=== PATIENT | female | born 1995 | race African-American/Black ===

== ENCOUNTER 2023-01-02 09:45 | Outpatient (REF) | payer OTHER, SELFPAY ==
[2023-01-02 10:01] LABS: MANUAL DIFF FLAG NO
[2023-01-02 10:51] LABS: Appearance Urine Clear; Color Urine Yellow; Glucose Urine UA Negative (Negative); Leukocyte Esterase Urine Moderate (2+) (Negative); Nitrite Urine Negative (Negative); Specific Gravity - Urine 1.015 (1.005-1.025); UMIC TRIGGER UA YES; Urine Blood Negative (Negative); Urine Ketones Negative (Negative); Urine Protein Negative (Neg-Trace)
[2023-01-02 10:54] LABS: Bacteria Urine 2+ (None Seen); Hyaline Casts Urine 0-2 /LPF (0-2)
[2023-01-02 11:16] LABS: Basophils Absolute Auto 0.1 X10*3/uL (0.0-0.2); Basophils Percent Auto 0.7 % (0-2); Eosinophils Absolute Auto 0.1 X10*3/uL (0.0-0.4); Eosinophils Percent Auto 1.1 % (0-4); Hematocrit 41.3 % (37.0-47.0); Hemoglobin 13.5 g/dl (12.0-16.0); Imm Gran Abs Auto 0.03 X10*3/uL (0.00-0.03); Imm Gran Pct Auto 0.3 % (0.0-0.4); Lymphocytes Absolute Auto 3.2 X10*3/uL (1.2-4.9); Lymphocytes Percent Auto 33.1 % (20-40); Mean Corpuscular HGB Conc 32.7 g/dl (31.0-35.0); Mean Corpuscular Hemoglobin 29.1 pg (27.0-33.0); Mean Platelet Volume 12.2 fL (9.4-12.3); Monocytes Absolute Auto 0.5 X10*3/uL (0.1-1.2); Monocytes Percent Auto 5.4 % (2-11); Neutrophils Absolute Auto 5.7 x10*3/uL (2.0-8.3); Neutrophils Percent Auto 59.4 % (45-73); Platelet Count 256 X10*3/uL (160-400); Red Blood Count 4.64 X10*6/uL (4.20-5.50); Red Cell Distribution Width 12.5 % (11.0-16.0); White Blood Count 9.6 X10*3/uL (4.8-10.8)
[2023-01-02 11:53] LABS: Anion Gap 12 (12-20); Blood Urea Nitrogen 8 mg/dL (9-16); Calcium 9.5 mg/dL (8.4-10.2); Carbon Dioxide 26 mmol/L (22-29); Chloride 103 mmol/L (96-108); Estimated Glomerular Filt Rate > 60; Glucose Random 68 mg/dL (60-115); Iron 140 mcg/dL (30-160); Percent Iron Saturation 33 % (15-50); Potassium 4.4 mmol/L (3.3-5.1); Sodium 137 mmol/L (135-145); Total Iron Binding Capacity 428 mcg/dL (228-428); Unsaturated Iron Binding 288 ug/dL
== END 2023-01-02 09:46 | disposition home or self-care (01) ==
LOC: HO.LAB 09:45
PROVIDERS: Visit Provider Psychiatry & Neurology Neurology
DX: G44.209 Tension-type headache, unspecified, not intractable (principal)
CPT/HCPCS: 36415; 80048; 81001; 83540; 84443; 85025

== ENCOUNTER 2023-01-18 07:27 | Outpatient (REF) | payer OTHER, SELFPAY ==
--- NOTE | ~2023-01-18 | CT_ITS ---
EXAMINATION: CT HEAD WITHOUT CONTRAST CLINICAL INFORMATION: Tension headaches. COMPARISON: None. TECHNIQUE: Contiguous axial imaging was performed from the skull base to vertex without intravenous administration of contrast. Coronal and sagittal reformatted images are performed at the CT scanner. [This CT examination was performed using dose optimization techniques as appropriate, variously including the following: *Automated exposure control *Adjustment of mA and/or kV according to patient size (this includes techniques or standardized protocols for targeted exams where dose is matched to indication/reason for exam; i.e. extremities or head) *Use of iterative reconstruction technique] DLP: 622 mGy-cm. FINDINGS: There is no evidence of acute intracranial hemorrhage or territorial infarction. No abnormal mass-effect or midline shift is seen. Shepherd to white matter differentiation is well preserved. No extra-axial fluid collections are identified. The ventricles are normal in size. There is no abnormal attenuation within the brain parenchyma. There is no osseous abnormality. The mastoid air cells and visualized portions of the paranasal sinuses are well-aerated. CT/CT head/brain wo IV con IMPRESSION: No acute intracranial pathology.
== END 2023-01-18 07:28 | disposition home or self-care (01) ==
LOC: HO.CT 07:27
PROVIDERS: PCP Internal Medicine; Visit Provider Psychiatry & Neurology Neurology
DX: G44.209 Tension-type headache, unspecified, not intractable (principal)
CPT/HCPCS: 70450

== ENCOUNTER 2023-01-20 16:52 | Emergency (ER) | payer OTHER, SELFPAY ==
[2023-01-20 17:16] VITALS: BP 154/95; PULSE 100; RESP 18; TEMP 36.6; O2SAT 98; BMI 23.8
--- NOTE | 2023-01-20 17:18 | ED_ITS ---
HPI - Headache General Chief Complaint: Headache <MAYNOR Tinoco - Last Filed: 01/28/23 13:19> Stated Complaint: migraine <MAYNOR Tinoco Last Filed: 01/28/23 13:19> Time Seen by Provider: 01/20/23 18:01 <MAYNOR Tinoco Last Filed: 01/28/23 13:19> Source: patient and RN notes reviewed <MAYNOR Song Last Filed: 01/20/23 19:17> Mode of arrival: ambulatory <MAYNOR Song Last Filed: 01/20/23 19:17> Limitations: no limitations <MAYNOR Song Last Filed: 01/20/23 19:17> History of Present Illness HPI Narrative: This is a 27-year-old female, with a past medical history of anxiety, PTSD, depression, who presents to the emergency department today with ongoing atraumatic headache x 1 month. Patient reports that 1 month ago she developed a frontal headache that has not resolved. She reports that her headache worsens with light and sounds and at times feels dizzy. She followed up with her care physician who prescribed her sumatriptan. She states that this medication did not help. She tried dvbz-cdc-ladgcrt Tylenol, Motrin, and Excedrin migraine without any relief. She was then referred to a neurologist who saw her and prescribed her amitriptyline and Tylenol with codeine. She states that she was taking this but this has not provided her with any relief. She reports that this medication gave her some GI upset, and reports that she has had abdominal bloating, heartburn, nausea, and vomited 2 times 2 days ago. She states that her last dose of Tylenol with codeine was 4 days ago. She denies any fevers, chills, blurred vision, ear pain, sore throat, chest pain, shortness of breath, palpitations, abdominal pain, diarrhea, constipation, dysuria, urinary frequency, urinary urgency. She denies history of migraines in the past. No other complaints or concerns at this time. <MAYNOR Song Last Filed: 01/20/23 19:17> MD elicited complaint: headache <MAYNOR Song Last Filed: 01/20/23 19:17> Onset (ago): month(s) <Winnie BrunnerMAYNOR petit - Last Filed: 01/20/23 19:17> Location: frontal and band-like <Winnie SamsMAYNOR - Last Filed: 01/20/23 19:17> Severity: moderate <Winnie BrunnerMAYNOR petit - Last Filed: 01/20/23 19:17> Quality & Timing: aching <Winnie SamsMAYNOR petit - Last Filed: 01/20/23 19:17> Exacerbating factors: none <WinnieMAYNOR Gomez - Last Filed: 01/20/23 19:17> Relieving factors: nothing <Winnie BrunnerMAYNOR petit - Last Filed: 01/20/23 19:17> Associated symptoms: lightheadedness <Winnie BrunnerMAYNOR petit - Last Filed: 01/20/23 19:17> Treatments prior to arrival: none <MAYNOR Song - Last Filed: 01/20/23 19:17> Related Data Home Medications: Previous Rx's Medication Instructions Recorded tenqtwlkwj-yixdvwljubrww-mbtubxoz 1 cap PO Q4-6H PRN pain #14 caps 01/20/23 50 mg-300 mg-40 mg capsule (Fioricet) oxycodone 5 mg tablet 5 mg PO Q6H PRN pain #7 tabs 01/27/23 <MAYNOR Tinoco Last Filed: 01/28/23 13:19> Allergies/Adverse Reactions: Allergies Allergy/AdvReac Type Severity Reaction Status Date / Time No Known Allergies Allergy Verified 01/27/23 16:36 <MAYNOR Tinoco Last Filed: 01/28/23 13:19> Review of Systems Review of Systems: Constitutional: No Weight loss, No Fever, No Chills ENT/Mouth: No Ear Pain, No Nasal Congestion, No Sinus Pain, No Hoarseness, No sore throat, No Rhinorrhea, No Swallowing Difficulty Cardiovascular: No Chest Pain, No SOB Respiratory: No Cough, No Sputum, No Wheezing Gastrointestinal: +Nausea, +Vomiting, +Bloating, No Diarrhea, No Constipation, No Abdominal pain Genitourinary: No Dysuria, No Urinary Frequency, No Hematuria, No Urinary Incontinence/retention, No Urgency, No Flank Pain Musculoskeletal: No joint pain, No Myalgias, No Joint Swelling Skin: No Skin Lesions, No rash Neuro: +headache, No Weakness, No Numbness, No Paresthesias <MAYNOR Song - Last Filed: 01/20/23 19:17> [facility] Past Medical History Attestation statement: The following information was validated with the patient. <MAYNOR Song - Last Filed: 01/20/23 19:17> Social History Social History: Social History Advance Directives: No Advance Directives Information Provided: No <MAYNOR Tinoco - Last Filed: 01/28/23 13:19> Physical Exam Vital Signs: Vital Signs: Last Vital Signs Temp 98.6 F 01/20/23 19:47 Pulse 80 01/20/23 19:47 Resp 16 01/20/23 19:47 BP 114/74 01/20/23 19:47 Pulse Ox 98 01/20/23 19:47 O2 Del Method Room Air 01/20/23 19:47 BMI result Body Mass Index 23.8 <MAYNOR Tinoco - Last Filed: 01/28/23 13:19> Vital Signs: Last Vital Signs Temp 98.6 F 01/20/23 19:47 Pulse 80 01/20/23 19:47 Resp 16 01/20/23 19:47 BP 114/74 01/20/23 19:47 Pulse Ox 98 01/20/23 19:47 O2 Del Method Room Air 01/20/23 19:47 BMI result Body Mass Index 23.8 <MAYNOR Song - Last Filed: 01/20/23 19:17> Vital Signs: Last Vital Signs Temp 98.6 F 01/20/23 19:47 Pulse 80 01/20/23 19:47 Resp 16 01/20/23 19:47 BP 114/74 01/20/23 19:47 Pulse Ox 98 01/20/23 19:47 O2 Del Method Room Air 01/20/23 19:47 BMI result Body Mass Index 23.8 <MAYNOR Avery - Last Filed: 01/20/23 20:13> Appearance: Alert. Oriented X3. No acute distress. wearing sunglasses Eyes: Pupils equal, round and reactive to light. EOMI ENT: Pharynx normal. Oral pharynx is nonerythematous, nonedematous, no tonsillar hypertrophy or exudates. No frontal or maxillarysinus tenderness to palpation. TMs are nonerythematous, nonbulging. Neck: Normal inspection. Neck supple. Full ROM. CVS: Normal heart rate and rhythm. Pulses normal. S1S2 regular Respiratory: No respiratory distress. Breath sounds normal. Lungs clear to auscultation bilaterally. Abdomen: Soft, nontender, normal active bowel sounds Skin: Skin warm and dry. Normal skin color. Normal skin turgor. No rashes. Extremities: No lower extremity edema. Neuro: Oriented X 3. No motor deficit. No sensory deficit. CN II-XII intact. Negative rhomberg. <MAYNOR Song Last Filed: 01/20/23 19:17> Course Course Course Narrative: Patient's with headaches for the last several months, seen by neurologist, took sumatriptan without relief, is taking amitriptyline prescribed by her neurologist, no relief with Tylenol [address] done outpatient 2 days ago, report is not back, called [facility] and they said they will read it soon <MAYNOR Tinoco - Last Filed: 01/28/23 13:19> RME - Patient's with headaches for the last several months, seen by neurologist, took sumatriptan without relief, is taking amitriptyline prescribed by her neurologist, no relief with Tylenol [address] done outpatient 2 days ago, report is not back, called [facility] and they said they will read it soon <MAYNOR Song Last Filed: 01/20/23 19:17> Reevaluation(s) Reevaluation #1: Patient medicated with 1L IV fluids, Benadryl, Toradol, and Reglan IV. Patient is still receiving IV fluids however patient reports that her migraine has completely resolved with migraine cocktail. No leukocytosis, electrolytes within normal limits. UA still pending at this time. Orthostatic vital signs will be obtained. sign-out to Bee Granda PA-C <MAYNOR Song Last Filed: 01/20/23 19:17> Time: 18:45 <MAYNOR Song Last Filed: 01/20/23 19:17> Reevaluation #2: 2012: Patient feeling significantly better and would like to discharge. P atient cleared for discharge. <MAYNOR Avery - Last Filed: 01/20/23 20:13> Medications Administered Discontinued Medications Generic Name Dose Route Start Last Admin Trade Name Freq PRN Reason Stop Dose Admin Diphenhydramine HCl 50 mg 01/20/23 18:22 01/20/23 18:38 Diphenhydramine Hcl 50 Mg/Ml Vial IVPUSH 01/20/23 18:23 50 mg ONCE ONE Administration Sodium Chloride 1,000 mls @ 999 mls/hr 01/20/23 18:30 01/20/23 19:59 Ns IVCONT 01/20/23 20:30 Infused .Q1H1M DEZ Infusion Ketorolac Tromethamine 15 mg 01/20/23 18:22 01/20/23 18:38 Ketorolac Tromethamine 15 Mg/Ml Vial IVPUSH 01/20/23 18:23 15 mg ONCE ONE Administration Metoclopramide HCl 10 mg 01/20/23 18:22 01/20/23 18:38 Metoclopramide Hcl 10 Mg/2 Ml Vial IVPUSH 01/20/23 18:23 10 mg ONCE ONE Administration <MAYNOR Tinoco - Last Filed: 01/28/23 13:19> Medications Administered Discontinued Medications Generic Name Dose Route Start Last Admin Trade Name Freq PRN Reason Stop Dose Admin Diphenhydramine HCl 50 mg 01/20/23 18:22 01/20/23 18:38 Diphenhydramine Hcl 50 Mg/Ml Vial IVPUSH 01/20/23 18:23 50 mg ONCE ONE Administration Sodium Chloride 1,000 mls @ 999 mls/hr 01/20/23 18:30 01/20/23 19:59 Ns IVCONT 01/20/23 20:30 Infused .Q1H1M DEZ Infusion Ketorolac Tromethamine 15 mg 01/20/23 18:22 01/20/23 18:38 Ketorolac Tromethamine 15 Mg/Ml Vial IVPUSH 01/20/23 18:23 15 mg ONCE ONE Administration Metoclopramide HCl 10 mg 01/20/23 18:22 01/20/23 18:38 Metoclopramide Hcl 10 Mg/2 Ml Vial IVPUSH 01/20/23 18:23 10 mg ONCE ONE Administration <MAYNOR Song - Last Filed: 01/20/23 19:17> Medications Administered Discontinued Medications Generic Name Dose Route Start Last Admin Trade Name Lilia PRN Reason Stop Dose Admin Diphenhydramine HCl 50 mg 01/20/23 18:22 01/20/23 18:38 Diphenhydramine Hcl 50 Mg/Ml Vial IVPUSH 01/20/23 18:23 50 mg ONCE ONE Administration Sodium Chloride 1,000 mls @ 999 mls/hr 01/20/23 18:30 01/20/23 19:59 Ns IVCONT 01/20/23 20:30 Infused .Q1H1M DEZ Infusion Ketorolac Tromethamine 15 mg 01/20/23 18:22 01/20/23 18:38 Ketorolac Tromethamine 15 Mg/Ml Vial IVPUSH 01/20/23 18:23 15 mg ONCE ONE Administration Metoclopramide HCl 10 mg 01/20/23 18:22 01/20/23 18:38 Metoclopramide Hcl 10 Mg/2 Ml Vial IVPUSH 01/20/23 18:23 10 mg ONCE ONE Administration <MAYNOR Avery - Last Filed: 01/20/23 20:13> Medical Decision Making Medical Decision Making MDM Narrative: This is a 27-year-old female, with a past medical history PTSD, anxiety, depression presents to the emergency department for ongoing headache x1 month. patient has tried sumatriptan, Tylenol, ibuprofen, amitriptyline, and Tylenol with codeine over the course of this past month with primary care follow-up as well as Neurology follow-up with no relief. Patient last had a head CT 2 days ago which was unremarkable. Mildly hypertensive at 154/95, all other vital signs within normal limits. Her symptoms have been unchanged over the past month, repeat CT imaging not indicated at this time. <MAYNOR Song Last Filed: 01/20/23 19:17> Differential Diagnosis Differential Diagnoses: The differential diagnosis associated with the presentation includes <MAYNOR Song Last Filed: 01/20/23 19:17> tension headache, migraine headache, cluster headache, sinusitis, viral syndrome, ICH - unlikely <MAYNOR Song Last Filed: 01/20/23 19:17> Admission/Observation Consideration of admission/observation: Escalation of care including admission/observation considered <MAYNOR Song - Last Filed: 01/20/23 19:17> Lab Data MDM Lab Attestation statement: I reviewed the patient's lab results. <MAYNOR Song - Last Filed: 01/20/23 19:17> Result Diagrams: 01/20/23 18:32 01/20/23 18:32 <MAYNOR Tinoco - Last Filed: 01/28/23 13:19> Labs: Lab Results 01/20/23 01/20/23 01/20/23 Range/Units 18:32 18:32 19:53 WBC 7.4 (4.8-10.8) X10*3/uL RBC 4.54 (4.20-5.50) X10*6/uL Hgb 13.3 (12.0-16.0) g/dl Hct 39.8 (37.0-47.0) % MCV 87.7 (80.0-98.0) fL MCH 29.3 (27.0-33.0) pg MCHC 33.4 (31.0-35.0) g/dl RDW 12.4 (11.0-16.0) % Plt Count 257 (160-400) X10*3/uL MPV 11.4 (9.4-12.3) fL Immature Gran % (Auto) 0.1 (0.0-0.4) % Neut % (Auto) 39.4 L (45-73) % Lymph % (Auto) 48.7 H (20-40) % [place] % (Auto) 8.5 (2-11) % Eos % (Auto) 2.4 (0-4) % Baso % (Auto) 0.9 (0-2) % Lymph # (Auto) 3.6 (1.2-4.9) X10*3/uL [place] # (Auto) 0.6 (0.1-1.2) X10*3/uL Eos # (Auto) 0.2 (0.0-0.4) X10*3/uL Baso # (Auto) 0.1 (0.0-0.2) X10*3/uL Abs Immat Gran (auto) 0.01 (0.00-0.03) X10*3/uL Absolute Neuts (auto) 2.9 (2.0-8.3) x10*3/uL Absolute Nucleated RBC 0.000 (0.0-0.012) X10*3/uL Nucleated RBC % (auto) 0.0 (0.0-0.2) /100WBC Sodium 138 (135-145) mmol/L Potassium 4.4 (3.3-5.1) mmol/L Chloride 106 (96-108) mmol/L Carbon Dioxide 25 (22-29) mmol/L Anion Gap 11 L (12-20) BUN 11 (9-16) mg/dL Creatinine 0.88 (0.5-1.4) mg/dL Estim Creat Clear Calc 75.9 Estimated GFR > 60 Random Glucose 88 (60-115) mg/dL Calcium 9.5 (8.4-10.2) mg/dL Magnesium 2.2 (1.6-2.6) mg/dL Total Bilirubin 0.3 (0.0-1.0) mg/dL Direct Bilirubin 0.1 (0.0-0.5) mg/dL AST 59 H (5-31) U/L ALT 58 H (0-31) U/L Alkaline Phosphatase 36 L (39-117) U/L Total Protein 7.3 (6.5-8.0) g/dL Albumin 4.1 (3.5-5.0) g/dL Lipase 16 (8-78) U/L Urine Color Yellow Urine Appearance Clear Urine pH 7.5 (5.0-9.0) Ur Specific [place] 1.010 (1.005-1.025) Urine Protein Negative (Neg-Trace) mg/dL Urine Glucose (UA) Negative (Negative) mg/dL Urine Ketones Negative (Negative) mg/dL Urine Blood Large (3+) H (Negative) Urine Nitrite Negative (Negative) Ur Leukocyte Esterase Trace H (Negative) Urine RBC >20 H (0-2) /HPF Urine WBC 0-5 (0-5) /HPF Ur Squamous Epith Cells 0-2 (0-2) /HPF Urine Bacteria Trace (None Seen) Hyaline Casts 0-2 (0-2) /LPF <MAYNOR Tinoco - Last Filed: 01/28/23 13:19> Lab Results 01/20/23 01/20/2301/20/23 Range/Units 18:32 18:32 19:53 WBC 7.4 (4.8-10.8) X10*3/uL RBC 4.54 (4.20-5.50) X10*6/uL Hgb 13.3 (12.0-16.0) g/dl Hct 39.8 (37.0-47.0) % MCV 87.7 (80.0-98.0) fL MCH 29.3 (27.0-33.0) pg MCHC 33.4 (31.0-35.0) g/dl RDW 12.4 (11.0-16.0) % Plt Count 257 (160-400) X10*3/uL MPV 11.4 (9.4-12.3) fL Immature Gran % (Auto) 0.1 (0.0-0.4) % Neut % (Auto) 39.4 L (45-73) % Lymph % (Auto) 48.7 H (20-40) % [place] % (Auto) 8.5 (2-11) % Eos % (Auto) 2.4 (0-4) % Baso % (Auto) 0.9 (0-2) % Lymph # (Auto) 3.6 (1.2-4.9) X10*3/uL [place] # (Auto) 0.6 (0.1-1.2) X10*3/uL Eos # (Auto) 0.2 (0.0-0.4) X10*3/uL Baso # (Auto) 0.1 (0.0-0.2) X10*3/uL Abs Immat Gran (auto) 0.01 (0.00-0.03) X10*3/uL Absolute Neuts (auto) 2.9 (2.0-8.3) x10*3/uL Absolute Nucleated RBC 0.000 (0.0-0.012) X10*3/uL Nucleated RBC % (auto) 0.0 (0.0-0.2) /100WBC Sodium 138 (135-145) mmol/L Potassium 4.4 (3.3-5.1) mmol/L Chloride 106 (96-108) mmol/L Carbon Dioxide 25 (22-29) mmol/L Anion Gap 11 L (12-20) BUN 11 (9-16) mg/dL Creatinine 0.88 (0.5-1.4) mg/dL Estim Creat Clear Calc 75.9 Estimated GFR > 60 Random Glucose 88 (60-115) mg/dL Calcium 9.5 (8.4-10.2) mg/dL Magnesium 2.2 (1.6-2.6) mg/dL Total Bilirubin 0.3 (0.0-1.0) mg/dL Direct Bilirubin 0.1 (0.0-0.5) mg/dL AST 59 H (5-31) U/L ALT 58 H (0-31) U/L Alkaline Phosphatase 36 L (39-117) U/L Total Protein 7.3 (6.5-8.0) g/dL Albumin 4.1 (3.5-5.0) g/dL Lipase 16 (8-78) U/L Urine Color Yellow Urine Appearance Clear Urine pH 7.5 (5.0-9.0) Ur Specific [place] 1.010 (1.005-1.025) Urine Protein Negative (Neg-Trace) mg/dL Urine Glucose (UA) Negative (Negative) mg/dL Urine Ketones Negative (Negative) mg/dL Urine Blood Large (3+) H (Negative) Urine Nitrite Negative (Negative) Ur Leukocyte Esterase Trace H (Negative) Urine RBC >20 H (0-2) /HPF Urine WBC 0-5 (0-5) /HPF Ur Squamous Epith Cells 0-2 (0-2) /HPF Urine Bacteria Trace (None Seen) Hyaline Casts 0-2 (0-2) /LPF <MAYNOR Song - Last Filed: 01/20/23 19:17> Lab Results 01/20/23 01/20/23 01/20/23 Range/Units 18:32 18:32 19:53 WBC 7.4 (4.8-10.8) X10*3/uL RBC 4.54 (4.20-5.50) X10*6/uL Hgb 13.3 (12.0-16.0) g/dl Hct 39.8 (37.0-47.0) % MCV 87.7 (80.0-98.0) fL MCH 29.3 (27.0-33.0) pg MCHC 33.4 (31.0-35.0) g/dl RDW 12.4 (11.0-16.0) % Plt Count 257 (160-400) X10*3/uL MPV 11.4 (9.4-12.3) fL Immature Gran % (Auto) 0.1 (0.0-0.4) % Neut % (Auto) 39.4 L (45-73) % Lymph % (Auto) 48.7 H (20-40) % [place] % (Auto) 8.5 (2-11) % Eos % (Auto) 2.4 (0-4) % Baso % (Auto) 0.9 (0-2) % Lymph # (Auto) 3.6 (1.2-4.9) X10*3/uL [place] # (Auto) 0.6 (0.1-1.2) X10*3/uL Eos # (Auto) 0.2 (0.0-0.4) X10*3/uL Baso # (Auto) 0.1 (0.0-0.2) X10*3/uL Abs Immat Gran (auto) 0.01 (0.00-0.03) X10*3/uL Absolute Neuts (auto) 2.9 (2.0-8.3) x10*3/uL Absolute Nucleated RBC 0.000 (0.0-0.012) X10*3/uL Nucleated RBC % (auto) 0.0 (0.0-0.2) /100WBC Sodium 138 (135-145) mmol/L Potassium 4.4 (3.3-5.1) mmol/L Chloride 106 (96-108) mmol/L Carbon Dioxide 25 (22-29) mmol/L Anion Gap 11 L (12-20) BUN 11 (9-16) mg/dL Creatinine 0.88 (0.5-1.4) mg/dL Estim Creat Clear Calc 75.9 Estimated GFR > 60 Random Glucose 88 (60-115) mg/dL Calcium 9.5 (8.4-10.2) mg/dL Magnesium 2.2 (1.6-2.6) mg/dL Total Bilirubin 0.3 (0.0-1.0) mg/dL Direct Bilirubin 0.1 (0.0-0.5) mg/dL AST 59 H (5-31) U/L ALT 58 H (0-31) U/L Alkaline Phosphatase 36 L (39-117) U/L Total Protein 7.3 (6.5-8.0) g/dL Albumin 4.1 (3.5-5.0) g/dL Lipase 16 (8-78) U/L Urine Color Yellow Urine Appearance Clear Urine pH 7.5 (5.0-9.0) Ur Specific [place] 1.010 (1.005-1.025) Urine Protein Negative (Neg-Trace) mg/dL Urine Glucose (UA) Negative (Negative) mg/dL Urine Ketones Negative (Negative) mg/dL Urine Blood Large (3+) H (Negative) Urine Nitrite Negative (Negative) Ur Leukocyte Esterase Trace H (Negative) Urine RBC >20 H (0-2) /HPF Urine WBC 0-5 (0-5) /HPF Ur Squamous Epith Cells 0-2 (0-2) /HPF Urine Bacteria Trace (None Seen) Hyaline Casts 0-2 (0-2) /LPF <MAYNOR Avery - Last Filed: 01/20/23 20:13> External Record Review External record reviewed: Inpatient record, Office record, Outpatient record, Prior outpatient labs, Prior outpatient radiology, Primary care record and Outside ED record <MAYNOR Song - Last Filed: 01/20/23 19:17> CT head performed on 01/18/2023: Attending Dr: Rama Gary MD Ordering Physician: Rama Gary MD Date of Service: 01/18/23 Procedure(s): CT head/brain wo IV con Accession Number(s): [id number] cc: Rama Gary MD~ EXAMINATION: CT HEAD WITHOUT CONTRAST CLINICAL INFORMATION: Tension headaches. COMPARISON: None. TECHNIQUE: Contiguous axial imaging was performed from the skull base to vertex without intravenous administration of contrast. Coronal and sagittal reformatted images are performed at the CT scanner. [This CT examination was performed using dose optimization techniques as appropriate, variously including the following: *Automated exposure control *Adjustment of mA and/or kV according to patient size (this includes techniques or standardized protocols for targeted exams where dose is matched to indication/reason for exam; i.e. extremities or head) *Use of iterative reconstruction technique] DLP: 622 mGy-cm. FINDINGS: There is no evidence of acute intracranial hemorrhage or territorial infarction. No abnormal mass-effect or midline shift is seen. Shepherd to white matter differentiation is well preserved. No extra-axial fluid collections are identified. The ventricles are normal in size. There is no abnormal attenuation within the brain parenchyma. There is no osseous abnormality. The mastoid air cells and visualized portions of the paranasal sinuses are well-aerated. ? CT/CT head/brain wo IV con IMPRESSION: No acute intracranial pathology. Dictated By: Victor Manuel Rajan MD <MAYNOR Song - Last Filed: 01/20/23 19:17> Discharge Plan Discharge Clinical Impression: Tension headache <MAYNOR Tinoco Last Filed: 01/28/23 13:19> Patient Disposition: Home, Self-Care <MAYNOR Tinoco Last Filed: 01/28/23 13:19> Instructions: Acute Headache (ED) <MAYNOR Tinoco Last Filed: 01/28/23 13:19> Additional Instructions: Take Fioricet as directed as needed for your pain. Drink plenty of fluids and get plenty of rest. Follow-up with your neurologist for further management of your symptoms. If any new or worsening symptoms occur, including but not limited to fevers, chills, worsening headache, visual changes, weakness, numbness or tingling, please return for re-evaluation. <MAYNOR Tinoco Last Filed: 01/28/23 13:19> Prescriptions: New vvioswkuww-tggjwjqrrchdu-tafs [Fioricet] 50-300-40 mg capsule 1 cap PO Q4-6H PRN (Reason: pain) Qty: 14 0RF No Action oxycodone 5 mg tablet 5 mg PO Q6H PRN (Reason: pain) Qty: 7 0RF Rx Instructions: Partial Fill upon patient request. <MAYNOR Tinoco Last Filed: 01/28/23 13:19> Referrals: Guillermo Mathur MD [Primary Care Provider] - <MAYNOR Tinoco Last Filed: 01/28/23 13:19> Interventions: ED Discharge Assessment Last Done: 01/20/23 20:21 <MAYNOR Tinoco - Last Filed: 01/28/23 13:19> Discharge Date/Time: 01/20/23 20:22 <MAYNOR Tinoco - Last Filed: 01/28/23 13:19> Print Language: Marshallese <MAYNOR Tinoco - Last Filed: 01/28/23 13:19>
[2023-01-20 18:36] LABS: MANUAL DIFF FLAG NO
[2023-01-20 18:37] LABS: Basophils Absolute Auto 0.1 X10*3/uL (0.0-0.2); Basophils Percent Auto 0.9 % (0-2); Eosinophils Absolute Auto 0.2 X10*3/uL (0.0-0.4); Eosinophils Percent Auto 2.4 % (0-4); Hematocrit 39.8 % (37.0-47.0); Hemoglobin 13.3 g/dl (12.0-16.0); Imm Gran Abs Auto 0.01 X10*3/uL (0.00-0.03); Imm Gran Pct Auto 0.1 % (0.0-0.4); Lymphocytes Absolute Auto 3.6 X10*3/uL (1.2-4.9); Lymphocytes Percent Auto 48.7 % (20-40); Mean Corpuscular HGB Conc 33.4 g/dl (31.0-35.0); Mean Corpuscular Hemoglobin 29.3 pg (27.0-33.0); Mean Corpuscular Volume 87.7 fL (80.0-98.0); Mean Platelet Volume 11.4 fL (9.4-12.3); Monocytes Absolute Auto 0.6 X10*3/uL (0.1-1.2); Monocytes Percent Auto 8.5 % (2-11); Neutrophils Absolute Auto 2.9 x10*3/uL (2.0-8.3); Neutrophils Percent Auto 39.4 % (45-73); Platelet Count 257 X10*3/uL (160-400); Red Blood Count 4.54 X10*6/uL (4.20-5.50); Red Cell Distribution Width 12.4 % (11.0-16.0); White Blood Count 7.4 X10*3/uL (4.8-10.8)
[2023-01-20] MEDS: diphenhydrAMINE HCL 50 MG/ML VIAL IVPUSH (18:38)
[2023-01-20] MEDS: 0.9 % Sodium Chloride 1,000 ML 999 ML IVCONT (18:38)
[2023-01-20] MEDS: Metoclopramide HCl 10 MG/2 ML VIAL IVPUSH (18:38)
[2023-01-20] MEDS: Ketorolac Tromethamine 15 MG/ML VIAL IVPUSH (18:38)
[2023-01-20 18:54] LABS: Alanine Aminotransferase 58 U/L (0-31); Albumin Level 4.1 g/dL (3.5-5.0); Alkaline Phosphatase 36 U/L (39-117); Anion Gap 11 (12-20); Aspartate Amino Transferase 59 U/L (5-31); Bilirubin Direct 0.1 mg/dL (0.0-0.5); Bilirubin Total 0.3 mg/dL (0.0-1.0); Blood Urea Nitrogen 11 mg/dL (9-16); Calcium 9.5 mg/dL (8.4-10.2); Carbon Dioxide 25 mmol/L (22-29); Chloride 106 mmol/L (96-108); Creatinine Clr Calc Pharmacy 75.9; Estimated Glomerular Filt Rate > 60; Glucose Random 88 mg/dL (60-115); Lipase 16 U/L (8-78); Magnesium 2.2 mg/dL (1.6-2.6); Potassium 4.4 mmol/L (3.3-5.1); Sodium 138 mmol/L (135-145); Total Protein 7.3 g/dL (6.5-8.0)
[2023-01-20 19:45] VITALS: BP 104/66; BP 96/57; PULSE 80; PULSE 82
[2023-01-20 19:46] VITALS: BP 114/74; PULSE 80
[2023-01-20 19:47] VITALS: BP 114/74; PULSE 80; RESP 16; TEMP 37; O2SAT 98
[2023-01-20 20:00] LABS: Appearance Urine Clear; Color Urine Yellow; Glucose Urine UA Negative (Negative); Leukocyte Esterase Urine Trace (Negative); Nitrite Urine Negative (Negative); PH 7.5 (5.0-9.0); UMIC TRIGGER UACC YES; Urine Blood Large (3+) (Negative); Urine Ketones Negative (Negative); Urine Protein Negative (Neg-Trace)
[2023-01-20 20:07] LABS: Bacteria Urine Trace (None Seen); Hyaline Casts Urine 0-2 /LPF (0-2); RBC Urine >20 /HPF (0-2); Squamous Epithelial Cell Urine 0-2 /HPF (0-2); WBC Urine 0-5 /HPF (0-5)
== END 2023-01-20 20:22 | disposition home or self-care (01) ==
PROVIDERS: Physician Assistant Medical; Emergency Provider Emergency Medicine; PCP Internal Medicine
DX: G44.209 Tension-type headache, unspecified, not intractable (principal)
CPT/HCPCS: 36415; 80048; 80076; 81001; 81003; 83690; 83735; 85025; 96361; 96374; 96375; 99284; J1200; J1885; J2765

== ENCOUNTER 2023-01-27 16:25 | Emergency (ER) | payer OTHER, SELFPAY ==
[2023-01-27 16:36] VITALS: BP 147/88; PULSE 80; RESP 18; TEMP 36.4; O2SAT 100; BMI 23.6
--- NOTE | 2023-01-27 16:37 | ED_ITS ---
HPI - General Adult General Chief complaint: Headache <Get Ellsworth - Last Filed: 01/27/23 16:38> Stated complaint: migraine, body aches <Get Ellsworth - Last Filed: 01/27/23 16:38> Time Seen by Provider: 01/27/23 17:01 <Get Ellsworth - Last Filed: 01/27/23 16:38> History of Present Illness HPI narrative: Patient complains of migraine headache same as many other frequent migraines over recent months, she has been seen by a neurologist is taking amitriptyline, she has used sumatriptan to no effect She was seen here last week and treated for migraine and left ear with resolution of the discomfort but the next day came back Headache today is exactly the same as prior, it is gradual onset no thunderclap no stiff neck no fever no injury no fainting or feeling faint no confusion <MAYNOR Tinoco - Last Filed: 01/27/23 19:12> Related Data Home medications: Previous Rx's Medication Instructions Recorded [id number]-[id number]-[id number] 1 cap PO Q4-6H PRN pain #14 caps 01/20/23 50 mg-300 mg-40 mg capsule (Fioricet) oxycodone 5 mg tablet 5 mg PO Q6H PRN pain #7 tabs 01/27/23 <Get Ellsworth - Last Filed: 01/27/23 16:38> Allergies/adverse reactions: Allergies Allergy/AdvReac Type Severity Reaction Status Date / Time No Known Allergies Allergy Verified 01/27/23 16:36 <Get Ellsworth - Last Filed: 01/27/23 16:38> [facility] Past Medical History Source: nursing notes reviewed <MAYNOR Tinoco - Last Filed: 01/27/23 19:12> Social History Social History: Social History Advance Directives: No Advance Directives Information Provided: No <Get Ellsworth - Last Filed: 01/27/23 16:38> Physical Exam ED Vital Signs: Vital Signs - 24 hr 01/27/23 16:36 01/27/23 18:42 Temperature 97.5 F 97.5 F Pulse Rate 80 76 Respiratory Rate 18 16 Blood Pressure 147/88 H 100/51 L Pulse Oximetry 100 100 Oxygen Delivery Method Room Air Room Air BMI result Body Mass Index 23.6 <Get Ellsworth - Last Filed: 01/27/23 16:38> Vital Signs - 24 hr 01/27/23 16:36 01/27/23 18:42 Temperature 97.5 F 97.5 F Pulse Rate 80 76 Respiratory Rate 18 16 Blood Pressure 147/88 H 100/51 L Pulse Oximetry 100 100 Oxygen Delivery Method Room Air Room Air BMI result Body Mass Index 23.6 <MAYNOR Tinoco - Last Filed: 01/27/23 19:12> General appearance is no acute distress Head is normocephalic atraumatic The eyes pupils equal round reactive to light extraocular is are intact, there is photophobia when the light was shined in the eyes The pharynx is clear no redness swelling or exudate Neck is supple The chest clear to auscultation bilateral Heart no murmur Abdomen soft nontender Extremities range of motion x4 Neuro gait and balance are normal, interaction comprehension and expression are normal, no facial asymmetry cranial nerves 2-12 intact as tested, cerebellar exam [id number] is normal, motor is 5/5 x4 <MAYNOR Tinoco - Last Filed: 01/27/23 19:12> Course Course Course Narrative: 27 year old female presents for evaluation of headache, body aches, and loss of sense of taste. Headache for 1 month and loss of taste for one week. Neuros intact. Plan for viral swab <Get Ellsworth - Last Filed: 01/27/23 16:38> 27 year old female presents for evaluation of headache, body aches, and loss of sense of taste. Headache for 1 month and loss of taste for one week. Neuros intact. Plan for viral swab COVID testing was negative Patient was treated with Toradol Benadryl and Reglan same as prior visit, and we added Decadron in the hope that it would prevent rebound migraine after treatment At 07:00 pm o'clock patient did feel very improved, fluids were still running so case was signed out for re-evaluation to physician assistant haskins <MAYNOR Tinoco - Last Filed: 01/27/23 19:12> Medications Administered Discontinued Medications Generic Name Dose Route Start Last Admin Trade Name Freq PRN Reason Stop Dose Admin Dexamethasone Sodium Phosphate 10 mg 01/27/23 17:54 01/27/23 18:09 Dexamethasone Sod Phosphate 10 Mg/Ml Vial IVPUSH 01/27/23 17:55 10 mg ONCE ONE Administration Diphenhydramine HCl 25 mg 01/27/23 17:54 01/27/23 18:08 Diphenhydramine Hcl 50 Mg/Ml Vial IVPUSH 01/27/23 17:55 25 mg ONCE ONE Administration Sodium Chloride 1,000 mls @ 999 mls/hr 01/27/23 18:00 01/27/23 18:08 Ns IVCONT 01/27/23 19:00 999 mls/hr .Q1H1M DEZ Administration Ketorolac Tromethamine 30 mg 01/27/23 17:54 01/27/23 18:09 Ketorolac Tromethamine 30 Mg/Ml Vial IVPUSH 01/27/23 17:55 30 mg ONCE ONE Administration Metoclopramide HCl 10 mg 01/27/23 17:54 01/27/23 18:09 Metoclopramide Hcl 10 Mg/2 Ml Vial IVPUSH 01/27/23 17:55 10 mg ONCE ONE Administration <Get Ellsworth - Last Filed: 01/27/23 16:38> Medications Administered Discontinued Medications Generic Name Dose Route Start Last Admin Trade Name Freq PRN Reason Stop Dose Admin Dexamethasone Sodium Phosphate 10 mg 01/27/23 17:54 01/27/23 18:09 Dexamethasone Sod Phosphate 10 Mg/Ml Vial IVPUSH 01/27/23 17:55 10 mg ONCE ONE Administration Diphenhydramine HCl 25 mg 01/27/23 17:54 01/27/23 18:08 Diphenhydramine Hcl 50 Mg/Ml Vial IVPUSH 01/27/23 17:55 25 mg ONCE ONE Administration Sodium Chloride 1,000 mls @ 999 mls/hr 01/27/23 18:00 01/27/23 18:08 Ns IVCONT 01/27/23 19:00 999 mls/hr .Q1H1M DEZ Administration Ketorolac Tromethamine 30 mg 01/27/23 17:54 01/27/23 18:09 Ketorolac Tromethamine 30 Mg/Ml Vial IVPUSH 01/27/23 17:55 30 mg ONCE ONE Administration Metoclopramide HCl 10 mg 01/27/23 17:54 01/27/23 18:09 Metoclopramide Hcl 10 Mg/2 Ml Vial IVPUSH 01/27/23 17:55 10 mg ONCE ONE Administration <MAYNOR Tinoco - Last Filed: 01/27/23 19:12> Medical Decision Making Lab Data Labs: Lab Results 01/27/23 Range/Units 16:42 Influenza Type A (PCR) NEGATIVE (Negative) Influenza Type B (PCR) NEGATIVE (Negative) RSV RNA Qual (PCR) NEGATIVE (Negative) SARS-CoV-2 RNA (RT-PCR) NEGATIVE (Negative) <Get Ellsworth - Last Filed: 01/27/23 16:38> Lab Results 01/27/23 Range/Units 16:42 Influenza Type A (PCR) NEGATIVE (Negative) Influenza Type B (PCR) NEGATIVE (Negative) RSV RNA Qual (PCR) NEGATIVE (Negative) SARS-CoV-2 RNA (RT-PCR) NEGATIVE (Negative) <MAYNOR Tinoco - Last Filed: 01/27/23 19:12> Discharge Plan Discharge Clinical Impression: Migraine <Get Ellsworth - Last Filed: 01/27/23 16:38> Patient Disposition: Home, Self-Care <Get Ellsworth - Last Filed: 01/27/23 16:38> Additional Instructions: We treated her migraine with the same medications as last time, but because the headache rebounded we added the steroid Decadron which may help prevent rebound of migraine headache If Tylenol and Motrin are not helping I wrote for a small quantity of oxycodone which is a narcotic, narcotics are habit-forming are only to be used occasionally Follow with your doctor and neurologist Return any time any worse condition or any concerns <Get Ellsworth - Last Filed: 01/27/23 16:38> Prescriptions: New oxycodone 5 mg tablet 5 mg PO Q6H PRN (Reason: pain) Qty: 7 0RF Rx Instructions: Partial Fill upon patient request. No Action [id number] [Fioricet] 50-300-40 mg capsule 1 cap PO Q4-6H PRN (Reason: pain) Qty: 14 0RF <Get Ellsworth - Last Filed: 01/27/23 16:38>
[2023-01-27 17:58] LABS: Influenza A PCR NEGATIVE (Negative); Influenza B PCR NEGATIVE (Negative); Resp Syncy Virus RNA Qual PCR NEGATIVE (Negative); SARS COV2 PCR INHOUSE NEGATIVE (Negative)
[2023-01-27] MEDS: 0.9 % Sodium Chloride 1,000 ML 999 ML IVCONT (18:08)
[2023-01-27] MEDS: diphenhydrAMINE HCL 50 MG/ML VIAL 25 MG IVPUSH (18:08)
[2023-01-27] MEDS: Metoclopramide HCl 10 MG/2 ML VIAL IVPUSH (18:09)
[2023-01-27] MEDS: dexAMETHasone sod phosphate 10 MG/ML VIAL IVPUSH (18:09)
[2023-01-27] MEDS: Ketorolac Tromethamine 30 MG/ML VIAL IVPUSH (18:09)
--- NOTE | 2023-01-27 18:13 | PC.NURSE ---
pt medicated per provider order, 1L NS running, pt resting quietly with lights dimmed.
[2023-01-27 18:42] VITALS: BP 100/51; PULSE 76; RESP 16; TEMP 36.4; O2SAT 100
== END 2023-01-27 19:53 | disposition home or self-care (01) ==
PROVIDERS: Physician Assistant; Emergency Provider Emergency Medicine; PCP Internal Medicine
DX: G43.909 Migraine, unspecified, not intractable, without status migrainosus (principal); Z20.822 Contact with and (suspected) exposure to COVID-19; Z20.828 Contact with and (suspected) exposure to other viral communicable diseases; Z79.899 Other long term (current) drug therapy
CPT/HCPCS: 0241U; 96361; 96374; 96375; 99284; J1100; J1200; J1885; J2765

== ENCOUNTER 2023-02-04 19:40 | Emergency (ER) | payer OTHER, SELFPAY ==
--- NOTE | ~2023-02-04 | CT_ITS ---
EXAMINATION: CT ABDOMEN AND PELVIS WITH CONTRAST CLINICAL INFORMATION: Nausea and vomiting. Abdominal pain. COMPARISON: None available. TECHNIQUE: Multidetector volumetric images were obtained from the superior aspect of the liver through the pubic symphysis following administration 85 mL of Omnipaque 350 intravenous contrast. Sagittal and coronal reformatted images were obtained on the technologist's workstation. Oral contrast: No This CT examination was performed using dose optimization techniques as appropriate, variously including the following: *Automated exposure control *Adjustment of mA and/or kV according to patient size (this includes techniques or standardized protocols for targeted exams where dose is matched to indication/reason for exam; i.e. extremities or head) *Use of iterative reconstruction technique DLP: 396 mGy-cm FINDINGS: LUNG BASES: The visualized lung bases are unremarkable. Partially visualized breast implants. LIVER, GALLBLADDER, AND BILIARY TREE: The liver is normal in size, shape, and attenuation. No focal hepatic lesion or biliary ductal dilatation is present. The gallbladder is unremarkable with no evidence of radiopaque gallstones, gallbladder wall thickening, or obvious pericholecystic inflammatory changes. PANCREAS: Unremarkable. SPLEEN: Unremarkable. ADRENAL GLANDS: Unremarkable. KIDNEYS AND URETERS: The kidneys are normal in size, shape, and attenuation. No hydronephrosis, hydroureter, or calculi seen. No perinephric stranding. BLADDER: Unremarkable. GASTROINTESTINAL TRACT: The stomach is unremarkable. The small bowel is normal in caliber. Mild wall hyperemia involving the ileum with mild wall thickening. No colonic wall thickening or inflammatory change. Normal appendix. No free air. No significant free fluid. ABDOMINAL WALL: No significant hernia is appreciated. LYMPH NODES: Normal. VASCULAR: Unremarkable. PELVIC VISCERA: The uterus and adnexa are unremarkable. OSSEOUS STRUCTURES: No acute or suspicious osseous abnormality. CT/CT abdomen pelvis w IV con IMPRESSION: Mild wall thickening and hyperemia of the ileum, suggestive of enteritis. Fleischner guidelines were followed.
[2023-02-04 20:15] VITALS: BP 135/92; PULSE 112; RESP 18; TEMP 37; O2SAT 99; BMI 23.6
--- NOTE | 2023-02-04 20:19 | ED.GENADULT ---
HPI - General Adult General Chief complaint: Abdominal Pain <MAYNOR Solano Last Filed: 02/06/23 13:33> Stated complaint: abd pain/vomiting <MAYNOR Solano Last Filed: 02/06/23 13:33> Time Seen by Provider: 02/04/23 23:07 <MAYNOR Solano Last Filed: 02/06/23 13:33> Source: patient <MAYNOR Clement Last Filed: 02/05/23 01:46> Mode of arrival: ambulatory <MAYNOR Clement Last Filed: 02/05/23 01:46> Limitations: no limitations <MAYNOR Clement Last Filed: 02/05/23 01:46> History of Present Illness HPI narrative: 27-year-old female without significant medical history presents to the Emergency Department for evaluation of nausea, vomiting, severe epigastric pain started yesterday, unable to tolerate anything by mouth, has associated anorexia. Patient reports that she feels bloated and is also having some acid reflux. Patient does not think she is . Denies fevers, chills, chest pain, shortness of breath, headache, vision changes, dizziness and weakness. <MAYNOR Clement Last Filed: 02/05/23 01:46> Related Data Home medications: Previous Rx's Medication Instructions Recorded sadtruklnm-egyuusnisfqsk-daeysbgx 1 cap PO Q4-6H PRN pain #14 caps 01/20/23 50 mg-300 mg-40 mg capsule (Fioricet) oxycodone 5 mg tablet 5 mg PO Q6H PRN pain #7 tabs 01/27/23 cefuroxime axetil 250 mg tablet 250 mg PO BID 7 days #14 tabs 02/05/23 ondansetron 4 mg disintegrating 4 mg PO Q6-8H PRN nausea and 02/05/23 tablet vomiting #7 tabs <MAYNOR Solano Last Filed: 02/06/23 13:33> Allergies/adverse reactions: Allergies Allergy/AdvReac Type Severity Reaction Status Date / Time No Known Allergies Allergy Verified 01/27/23 16:36 <MAYNOR Solano Last Filed: 02/06/23 13:33> Review of Systems Review of Systems: Constitutional : No Weight loss, No Fever, No Chills, No Fatigue, No Malaise ENT/Mouth : No sore throat, No Rhinorrhea Eyes: No Eye Pain, No Swelling, No Redness Cardiovascular : No Chest Pain, No SOB, No Dyspnea on Exertion, No Orthopnea, No Edema, No Palpitations Respiratory : No Cough, No Sputum, No Wheezing Gastrointestinal : + Nausea, + Vomiting, No Diarrhea, No Constipation, + abdominal Pain, No Hematochezia, No Melena Genitourinary : No Dysuria, No Urinary Frequency, No Hematuria, Musculoskeletal : No joint pain, No Myalgias, No Joint Swelling Skin : No Skin Lesions, No rash Neuro : No Weakness, No Numbness, No Dizziness, No Headache Psych : No Anxiety/Panic, No Depression All other systems reviewed and are negative <MAYNOR Clement - Last Filed: 02/05/23 01:46> Yes all other systems are reviewed and are negative <MAYNOR Clement - Last Filed: 02/05/23 01:46> [facility] Past Medical History Attestation statement: The following information was validated with the patient. <MAYNOR Clement - Last Filed: 02/05/23 01:46> Source: old records reviewed and nursing notes reviewed <MAYNOR Clement - Last Filed: 02/05/23 01:46> Social History Social History: Social History Alcohol intake: former Smoked in Last 30 Days: No Use of substances other than those prescribed or required for medical reasons: No Advance Directives: No Advance Directives Information Provided: No Patient : No <AMYNOR Solano - Last Filed: 02/06/23 13:33> Physical Exam ED Vital Signs: Vital Signs - 24 hr 02/04/23 20:15 02/04/23 23:06 02/05/23 01:07 Temperature 98.6 F 99.0 F 98.6 F Pulse Rate 112 H 99 104 H Respiratory Rate 18 17 17 Blood Pressure 135/92 H 120/73 114/71 Pulse Oximetry 99 98 100 Oxygen Delivery Method Room Air Room Air Room Air BMI result Body Mass Index 23.6 <MAYNOR Solano Last Filed: 02/06/23 13:33> Vital Signs - 24 hr 02/04/23 20:15 02/04/23 23:06 02/05/23 01:07 Temperature 98.6 F 99.0 F 98.6 F Pulse Rate 112 H 99 104 H Respiratory Rate 18 17 17 Blood Pressure 135/92 H 120/73 114/71 Pulse Oximetry 99 98 100 Oxygen Delivery Method Room Air Room Air Room Air BMI result Body Mass Index 23.6 vss <MAYNOR Clement Last Filed: 02/05/23 01:46> Appearance: Alert.? Oriented X3.? No acute distress.? Head: Normocephalic, atraumatic, no step-offs or deformities Eyes: Pupils equal, round and reactive to light.? ENT: Pharynx normal.? Neck: Normal inspection.? Neck supple.? CVS: Normal heart rate and rhythm.? Pulses normal.? Respiratory: No respiratory distress.? Breath sounds normal.? Abdomen: Soft and diffsuely tender.? Skin: Skin warm and dry.? Normal skin color.? Normal skin turgor.? Extremities: No lower extremity edema.? No calf ttp. 5/5 strength to bilateral upper and lower extremities Neuro: Oriented X 3.? No motor deficit.? No sensory deficit. CN 2-12 intact <MAYNOR Clement Last Filed: 02/05/23 01:46> Course Course Course Narrative: RME: 27 yold female presents to the ED for abdominal pain acid burning sensation. no diarreha or compalints. labs ordered <MAYNOR Solano Last Filed: 02/06/23 13:33> Reevaluation(s) Reevaluation #1: CBC with slight leukocytosis 12.8 likely reactive to nausea and vomiting. Chemistry unremarkable, normal lipase unlikely pancreatitis. Normal transaminases. UA with UTI, will treat with antibiotics. CT of the abdomen and pelvis with mild wall thickening and hyperemia of the ileum suggestive of enteritis. Patient to receive IV antibiotics. Will discuss case with hospitalist as patient is not tolerating p.o.. <MAYNOR Clement Last Filed: 02/05/23 01:46> Time: 01:40 <MAYNOR Clement - Last Filed: 02/05/23 01:46> Reevaluation #2: Patient's CT scan showing enteritis, patient is waiting on blood cultures, lactic acid. Ceftriaxone ordered for UTI. Since patient is not tolerating p.o. may require hospital admission depending on repeat evaluation. Sign out given to Dr. Lieberman. <MAYNOR Clement - Last Filed: 02/05/23 01:46> Time: 01:44 <MAYNOR Clement - Last Filed: 02/05/23 01:46> Medications Administered Discontinued Medications Generic Name Dose Route Start Last Admin Trade Name Freq PRN Reason Stop Dose Admin Sodium Chloride 1,000 mls @ 999 mls/hr 02/05/23 00:30 02/05/23 01:35 Ns IV 02/05/23 01:30 Infused .Q1H1M DEZ Infusion Ceftriaxone Sodium 1 gm/ 50 mls @ 100 mls/hr 02/05/23 01:43 02/05/23 02:53 Sodium Chloride IV 02/05/23 02:12 Infused ONCE ONE Infusion Iohexol 85 ml 02/05/23 01:11 02/05/23 01:11 Iohexol 350 Mg/Ml 100 Ml Infus..Btl IV 02/05/23 01:12 85 ml ONCE ONE Administration Morphine Sulfate 4 mg 02/05/23 01:42 02/05/23 02:14 Morphine Sulfate 4 Mg/Ml Cartridge IVPUSH 02/05/23 01:43 4 mg ONCE ONE Administration Protocol Ondansetron HCl 4 mg 02/05/23 00:26 02/05/23 00:34 Ondansetron Hcl 4 Mg/2 Ml Vial IVPUSH 02/05/23 00:27 4 mg ONCE ONE Administration Prochlorperazine Edisylate 5 mg 02/05/23 01:43 02/05/23 02:13 Prochlorperazine Edisylate 10 Mg/2 Ml Vial IVPUSH 02/05/23 01:44 5 mg ONCE ONE Administration <MAYNOR Solano - Last Filed: 02/06/23 13:33> Medications Administered Discontinued Medications Generic Name Dose Route Start Last Admin Trade Name Freq PRN Reason Stop Dose Admin Sodium Chloride 1,000 mls @ 999 mls/hr 02/05/23 00:30 02/05/23 01:35 Ns IV 02/05/23 01:30 Infused .Q1H1M DEZ Infusion Ceftriaxone Sodium 1 gm/ 50 mls @ 100 mls/hr 02/05/23 01:43 02/05/23 02:53 Sodium Chloride IV 02/05/23 02:12 Infused ONCE ONE Infusion Iohexol 85 ml 02/05/23 01:11 02/05/23 01:11 Iohexol 350 Mg/Ml 100 Ml Infus..Btl IV 02/05/23 01:12 85 ml ONCE ONE Administration Morphine Sulfate 4 mg 02/05/23 01:42 02/05/23 02:14 Morphine Sulfate 4 Mg/Ml Cartridge IVPUSH 02/05/23 01:43 4 mg ONCE ONE Administration Protocol Ondansetron HCl 4 mg 02/05/23 00:26 02/05/23 00:34 Ondansetron Hcl 4 Mg/2 Ml Vial IVPUSH 02/05/23 00:27 4 mg ONCE ONE Administration Prochlorperazine Edisylate 5 mg 02/05/23 01:43 02/05/23 02:13 Prochlorperazine Edisylate 10 Mg/2 Ml Vial IVPUSH 02/05/23 01:44 5 mg ONCE ONE Administration <MAYNOR Clement - Last Filed: 02/05/23 01:46> Medical Decision Making Medical Decision Making [facility] Narrative: [address]25 27-year-old female presents with abdominal pain, nausea and vomiting since last night worsening. Unable to tolerate p.o.. Physical exam diffusely tender abdomen worse in the epigastric region. Patient actively vomiting during my exam. Concerns for viral and illness versus appendicitis. Unlikely pyelonephritis, obstructing uropathy, cholecystitis, diverticulitis or pancreatitis. No signs of small or large bowel obstruction. History and physical exam not consistent with ovarian torsion or ectopic . Plan labs, urine, imaging. <MAYNOR Clement Last Filed: 02/05/23 01:46> Differential Diagnosis Differential Diagnoses: The differential diagnosis associated with the presentation includes <MAYNOR Clement Last Filed: 02/05/23 01:46> Concerns for viral and illness versus appendicitis. Unlikely pyelonephritis, obstructing uropathy, cholecystitis, diverticulitis or pancreatitis. No signs of small or large bowel obstruction. History and physical exam not consistent with ovarian torsion or ectopic . <MAYNOR Clement - Last Filed: 02/05/23 01:46> Admission/Observation Consideration of admission/observation: Escalation of care including admission/observation considered <MAYNOR Clement - Last Filed: 02/05/23 01:46> Lab Data MDM Lab Attestation statement: I reviewed the patient's lab results. <MAYNOR Clement - Last Filed: 02/05/23 01:46> Result Diagrams: 02/04/23 20:52 02/04/23 20:52 <MAYNOR Solano - Last Filed: 02/06/23 13:33> Labs: Lab Results 02/04/23 02/04/23 02/04/23 Range/Units 20:52 20:52 23:03 WBC 12.8 H (4.8-10.8) X10*3/uL RBC 4.80 (4.20-5.50) X10*6/uL Hgb 14.1 (12.0-16.0) g/dl Hct 41.9 (37.0-47.0) % MCV 87.3 (80.0-98.0) fL MCH 29.4 (27.0-33.0) pg MCHC 33.7 (31.0-35.0) g/dl RDW 12.4 (11.0-16.0) % Plt Count 232 (160-400) X10*3/uL MPV 10.9 (9.4-12.3) fL Immature Gran % (Auto) 0.3 (0.0-0.4) % Neut % (Auto) 80.3 H (45-73) % Lymph % (Auto) 12.6 L (20-40) % [place] % (Auto) 5.6 (2-11) % Eos % (Auto) 0.8 (0-4) % Baso % (Auto) 0.4 (0-2) % Lymph # (Auto) 1.6 (1.2-4.9) X10*3/uL [place] # (Auto) 0.7 (0.1-1.2) X10*3/uL Eos # (Auto) 0.1 (0.0-0.4) X10*3/uL Baso # (Auto) 0.1 (0.0-0.2) X10*3/uL Abs Immat Gran (auto) 0.04 H (0.00-0.03) X10*3/uL Absolute Neuts (auto) 10.3 H (2.0-8.3) x10*3/uL Absolute Nucleated RBC 0.000 (0.0-0.012) X10*3/uL Nucleated RBC % (auto) 0.0 (0.0-0.2) /100WBC Sodium 138 (135-145) mmol/L Potassium 4.2 (3.3-5.1) mmol/L Chloride 104 (96-108) mmol/L Carbon Dioxide 24 (22-29) mmol/L Anion Gap 14 (12-20) BUN 9 (9-16) mg/dL Creatinine 0.71 (0.5-1.4) mg/dL Estim Creat Clear Calc 94.1 Estimated GFR > 60 Random Glucose 93 (60-115) mg/dL Lactic Acid (0.5-2.0) mmol/L Calcium 9.6 (8.4-10.2) mg/dL Total Bilirubin 0.6 (0.0-1.0) mg/dL AST 15 (5-31) U/L ALT 14 (0-31) U/L Alkaline Phosphatase 40 (39-117) U/L Total Protein 7.4 (6.5-8.0) g/dL Albumin 4.2 (3.5-5.0) g/dL Lipase 11 (8-78) U/L Urine Color Yellow Urine Appearance Clear Urine pH 7.5 (5.0-9.0) Ur Specific [place] >= 1.030 H (1.005-1.025) Urine Protein 30 (1+) H (Neg-Trace) mg/dL Urine Glucose (UA) Negative (Negative) mg/dL Urine Ketones 40 (Negative) mg/dL Urine Blood Negative (Negative) Urine Nitrite Negative (Negative) Ur Leukocyte Esterase Trace H (Negative) Urine RBC 6-10 H (0-2) /HPF Urine WBC 6-10 H (0-5) /HPF Ur Squamous Epith Cells 6-10 (0-2) /HPF Urine Bacteria 2+ (None Seen) Hyaline Casts 0-2 (0-2) /LPF Urine Test (NEGATIVE) Urine Opiates Screen (Not Detect) Urine Fentanyl Screen (Not Detect) Ur Barbiturates Screen (Not Detect) Ur Phencyclidine Scrn (Not Detect) Ur Amphetamines Screen (Not Detect) U Benzodiazepines Scrn (Not Detect) Urine Cocaine Screen (Not Detect) U Marijuana (THC) Screen (Not Detect) 02/04/23 02/04/23 02/05/23 Range/Units 23:03 23:03 01:55 WBC (4.8-10.8) X10*3/uL RBC (4.20-5.50) X10*6/uL Hgb (12.0-16.0) g/dl Hct (37.0-47.0) % MCV (80.0-98.0) fL MCH (27.0-33.0) pg MCHC (31.0-35.0) g/dl RDW (11.0-16.0) % Plt Count (160-400) X10*3/uL MPV (9.4-12.3) fL Immature Gran % (Auto) (0.0-0.4) % Neut % (Auto) (45-73) % Lymph % (Auto) (20-40) % [place] % (Auto) (2-11) % Eos % (Auto) (0-4) % Baso % (Auto) (0-2) % Lymph # (Auto) (1.2-4.9) X10*3/uL [place] # (Auto) (0.1-1.2) X10*3/uL Eos # (Auto) (0.0-0.4) X10*3/uL Baso # (Auto) (0.0-0.2) X10*3/uL Abs Immat Gran (auto) (0.00-0.03) X10*3/uL Absolute Neuts (auto) (2.0-8.3) x10*3/uL Absolute Nucleated RBC (0.0-0.012) X10*3/uL Nucleated RBC % (auto) (0.0-0.2) /100WBC Sodium (135-145) mmol/L Potassium (3.3-5.1) mmol/L Chloride (96-108) mmol/L Carbon Dioxide (22-29) mmol/L Anion Gap (12-20) BUN (9-16) mg/dL Creatinine (0.5-1.4) mg/dL Estim Creat Clear Calc Estimated GFR Random Glucose (60-115) mg/dL Lactic Acid 1.4 (0.5-2.0) mmol/L Calcium (8.4-10.2) mg/dL Total Bilirubin (0.0-1.0) mg/dL AST (5-31) U/L ALT (0-31) U/L Alkaline Phosphatase (39-117) U/L Total Protein (6.5-8.0) g/dL Albumin (3.5-5.0) g/dL Lipase (8-78) U/L Urine Color Urine Appearance Urine pH (5.0-9.0) Ur Specific [place] (1.005-1.025) Urine Protein (Neg-Trace) mg/dL Urine Glucose (UA) (Negative) mg/dL Urine Ketones (Negative) mg/dL Urine Blood (Negative) Urine Nitrite (Negative) Ur Leukocyte Esterase (Negative) Urine RBC (0-2) /HPF Urine WBC (0-5) /HPF Ur Squamous Epith Cells (0-2) /HPF Urine Bacteria (None Seen) Hyaline Casts (0-2) /LPF Urine Test NEGATIVE (NEGATIVE) Urine Opiates Screen Not Detected (Not Detect) Urine Fentanyl Screen Not Detected (Not Detect) Ur Barbiturates Screen Not Detected (Not Detect) Ur Phencyclidine Scrn Not Detected (Not Detect) Ur Amphetamines Screen Not Detected (Not Detect) U Benzodiazepines Scrn Not Detected (Not Detect) Urine Cocaine Screen Not Detected (Not Detect) U Marijuana (THC) Screen Not Detected (Not Detect) <MAYNOR Solano - Last Filed: 02/06/23 13:33> Lab Results 02/04/23 02/04/23 02/04/23 Range/Units 20:52 20:52 23:03 WBC 12.8 H (4.8-10.8) X10*3/uL RBC 4.80 (4.20-5.50) X10*6/uL Hgb 14.1 (12.0-16.0) g/dl Hct 41.9 (37.0-47.0) % MCV 87.3 (80.0-98.0) fL MCH 29.4 (27.0-33.0) pg MCHC 33.7 (31.0-35.0) g/dl RDW 12.4 (11.0-16.0) % Plt Count 232 (160-400) X10*3/uL MPV 10.9 (9.4-12.3) fL Immature Gran % (Auto) 0.3 (0.0-0.4) % Neut % (Auto) 80.3 H (45-73) % Lymph % (Auto) 12.6 L (20-40) % [place] % (Auto) 5.6 (2-11) % Eos % (Auto) 0.8 (0-4) % Baso % (Auto) 0.4 (0-2) % Lymph # (Auto) 1.6 (1.2-4.9) X10*3/uL [place] # (Auto) 0.7 (0.1-1.2) X10*3/uL Eos # (Auto) 0.1 (0.0-0.4) X10*3/uL Baso # (Auto) 0.1 (0.0-0.2) X10*3/uL Abs Immat Gran (auto) 0.04 H (0.00-0.03) X10*3/uL Absolute Neuts (auto) 10.3 H (2.0-8.3) x10*3/uL Absolute Nucleated RBC 0.000 (0.0-0.012) X10*3/uL Nucleated RBC % (auto) 0.0 (0.0-0.2) /100WBC Sodium 138 (135-145) mmol/L Potassium 4.2 (3.3-5.1) mmol/L Chloride 104 (96-108) mmol/L Carbon Dioxide 24 (22-29) mmol/L Anion Gap 14 (12-20) BUN 9 (9-16) mg/dL Creatinine 0.71 (0.5-1.4) mg/dL Estim Creat Clear Calc 94.1 Estimated GFR > 60 Random Glucose 93 (60-115) mg/dL Lactic Acid (0.5-2.0) mmol/L Calcium 9.6 (8.4-10.2) mg/dL Total Bilirubin 0.6 (0.0-1.0) mg/dL AST 15 (5-31) U/L ALT 14 (0-31) U/L Alkaline Phosphatase 40 (39-117) U/L Total Protein 7.4 (6.5-8.0) g/dL Albumin 4.2 (3.5-5.0) g/dL Lipase 11 (8-78) U/L Urine Color Yellow Urine Appearance Clear Urine pH 7.5 (5.0-9.0) Ur Specific [place] >= 1.030 H (1.005-1.025) Urine Protein 30 (1+) H (Neg-Trace) mg/dL Urine Glucose (UA) Negative (Negative) mg/dL Urine Ketones 40 (Negative) mg/dL Urine Blood Negative (Negative) Urine Nitrite Negative (Negative) Ur Leukocyte Esterase Trace H (Negative) Urine RBC 6-10 H (0-2) /HPF Urine WBC 6-10 H (0-5) /HPF Ur Squamous Epith Cells 6-10 (0-2) /HPF Urine Bacteria 2+ (None Seen) Hyaline Casts 0-2 (0-2) /LPF Urine Test (NEGATIVE) Urine Opiates Screen (Not Detect) Urine Fentanyl Screen (Not Detect) Ur Barbiturates Screen (Not Detect) Ur Phencyclidine Scrn (Not Detect) Ur Amphetamines Screen (Not Detect) U Benzodiazepines Scrn (Not Detect) Urine Cocaine Screen (Not Detect) U Marijuana (THC) Screen (Not Detect) 02/04/23 02/04/23 02/05/23 Range/Units 23:03 23:03 01:55 WBC (4.8-10.8) X10*3/uL RBC (4.20-5.50) X10*6/uL Hgb (12.0-16.0) g/dl Hct (37.0-47.0) % MCV (80.0-98.0) fL MCH (27.0-33.0) pg MCHC (31.0-35.0) g/dl RDW (11.0-16.0) % Plt Count (160-400) X10*3/uL MPV (9.4-12.3) fL Immature Gran % (Auto) (0.0-0.4) % Neut % (Auto) (45-73) % Lymph % (Auto) (20-40) % [place] % (Auto) (2-11) % Eos % (Auto) (0-4) % Baso % (Auto) (0-2) % Lymph # (Auto) (1.2-4.9) X10*3/uL [place] # (Auto) (0.1-1.2) X10*3/uL Eos # (Auto) (0.0-0.4) X10*3/uL Baso # (Auto) (0.0-0.2) X10*3/uL Abs Immat Gran (auto) (0.00-0.03) X10*3/uL Absolute Neuts (auto) (2.0-8.3) x10*3/uL Absolute Nucleated RBC (0.0-0.012) X10*3/uL Nucleated RBC % (auto) (0.0-0.2) /100WBC Sodium (135-145) mmol/L Potassium (3.3-5.1) mmol/L Chloride (96-108) mmol/L Carbon Dioxide (22-29) mmol/L Anion Gap (12-20) BUN (9-16) mg/dL Creatinine (0.5-1.4) mg/dL Estim Creat Clear Calc Estimated GFR Random Glucose (60-115) mg/dL Lactic Acid 1.4 (0.5-2.0) mmol/L Calcium (8.4-10.2) mg/dL Total Bilirubin (0.0-1.0) mg/dL AST (5-31) U/L ALT (0-31) U/L Alkaline Phosphatase (39-117) U/L Total Protein (6.5-8.0) g/dL Albumin (3.5-5.0) g/dL Lipase (8-78) U/L Urine Color Urine Appearance Urine pH (5.0-9.0) Ur Specific [place] (1.005-1.025) Urine Protein (Neg-Trace) mg/dL Urine Glucose (UA) (Negative) mg/dL Urine Ketones (Negative) mg/dL Urine Blood (Negative) Urine Nitrite (Negative) Ur Leukocyte Esterase (Negative) Urine RBC (0-2) /HPF Urine WBC (0-5) /HPF Ur Squamous Epith Cells (0-2) /HPF Urine Bacteria (None Seen) Hyaline Casts (0-2) /LPF Urine Test NEGATIVE (NEGATIVE) Urine Opiates Screen Not Detected (Not Detect) Urine Fentanyl Screen Not Detected (Not Detect) Ur Barbiturates Screen Not Detected (Not Detect) Ur Phencyclidine Scrn Not Detected (Not Detect) Ur Amphetamines Screen Not Detected (Not Detect) U Benzodiazepines Scrn Not Detected (Not Detect) Urine Cocaine Screen Not Detected (Not Detect) U Marijuana (THC) Screen Not Detected (Not Detect) <MAYNOR Clement - Last Filed: 02/05/23 01:46> Independent Interpretation I performed an independent interpretation of an: CT Scan (CT/CT abdomen pelvis w IV con IMPRESSION: Mild wall thickening and hyperemia of the ileum, suggestive of enteritis. Fleischner guidelines were followed.) <MAYNOR Clement - Last Filed: 02/05/23 01:46> Radiology Impression Discussion of test interpretation with radiology: I have reviewed the radiologist's reading. <MAYNOR Clement - Last Filed: 02/05/23 01:46> External Record Review External record reviewed: Inpatient record, Office record, Outpatient record, Prior outpatient labs and Prior outpatient radiology <MAYNOR Clement - Last Filed: 02/05/23 01:46> Core Measures AMI core measures followed: Yes <MAYNOR Clement Last Filed: 02/05/23 01:46> Measure exclusions: not indicated <MAYNOR Clement - Last Filed: 02/05/23 01:46> Critical Care Time Critical Care Time Critical Care Time: No <MAYNOR Clement Last Filed: 02/05/23 01:46> Discharge Plan Discharge Clinical Impression: Enteritis, UTI (urinary tract infection) <MAYNOR Solano Last Filed: 02/06/23 13:33> Patient Disposition: Home, Self-Care <MAYNOR Solano Last Filed: 02/06/23 13:33> Instructions: Urinary Tract Infection in Women (DC), Acute Nausea and Vomiting (ED) <MAYNOR Solano - Last Filed: 02/06/23 13:33> Additional Instructions: Drink plenty of fluids You possibly have slight urinary tract infection Take antibiotic as prescribed Nausea medication as prescribed Report to the ER worsening of the pain/fever/vomiting <MAYNOR Solano - Last Filed: 02/06/23 13:33> Prescriptions: New cefuroxime axetil 250 mg tablet 250 mg PO BID 7 Days Qty: 14 0RF ondansetron 4 mg tablet,disintegrating 4 mg PO Q6-8H PRN (Reason: nausea and vomiting) Qty: 7 0RF No Action [id number]-[id number] [Fioricet] 50-300-40 mg capsule 1 cap PO Q4-6H PRN (Reason: pain) Qty: 14 0RF oxycodone 5 mg tablet 5 mg PO Q6H PRN (Reason: pain) Qty: 7 0RF Rx Instructions: Partial Fill upon patient request. <MAYNOR Solano - Last Filed: 02/06/23 13:33> Interventions: ED Discharge Assessment Last Done: 02/05/23 05:28 <MAYNOR Solano - Last Filed: 02/06/23 13:33> Discharge Date/Time: 02/05/23 05:39 <MAYNOR Solano - Last Filed: 02/06/23 13:33>
[2023-02-04 20:57] LABS: MANUAL DIFF FLAG NO
[2023-02-04 20:58] LABS: Basophils Absolute Auto 0.1 X10*3/uL (0.0-0.2); Basophils Percent Auto 0.4 % (0-2); Eosinophils Absolute Auto 0.1 X10*3/uL (0.0-0.4); Eosinophils Percent Auto 0.8 % (0-4); Hematocrit 41.9 % (37.0-47.0); Hemoglobin 14.1 g/dl (12.0-16.0); Imm Gran Abs Auto 0.04 X10*3/uL (0.00-0.03); Imm Gran Pct Auto 0.3 % (0.0-0.4); Lymphocytes Absolute Auto 1.6 X10*3/uL (1.2-4.9); Lymphocytes Percent Auto 12.6 % (20-40); Mean Corpuscular HGB Conc 33.7 g/dl (31.0-35.0); Mean Corpuscular Hemoglobin 29.4 pg (27.0-33.0); Mean Corpuscular Volume 87.3 fL (80.0-98.0); Mean Platelet Volume 10.9 fL (9.4-12.3); Monocytes Absolute Auto 0.7 X10*3/uL (0.1-1.2); Monocytes Percent Auto 5.6 % (2-11); Neutrophils Absolute Auto 10.3 x10*3/uL (2.0-8.3); Neutrophils Percent Auto 80.3 % (45-73); Platelet Count 232 X10*3/uL (160-400); Red Cell Distribution Width 12.4 % (11.0-16.0); White Blood Count 12.8 X10*3/uL (4.8-10.8)
[2023-02-04 21:11] LABS: Alanine Aminotransferase 14 U/L (0-31); Albumin Level 4.2 g/dL (3.5-5.0); Alkaline Phosphatase 40 U/L (39-117); Anion Gap 14 (12-20); Aspartate Amino Transferase 15 U/L (5-31); Bilirubin Total 0.6 mg/dL (0.0-1.0); Blood Urea Nitrogen 9 mg/dL (9-16); Calcium 9.6 mg/dL (8.4-10.2); Carbon Dioxide 24 mmol/L (22-29); Chloride 104 mmol/L (96-108); Creatinine Clr Calc Pharmacy 94.1; Estimated Glomerular Filt Rate > 60; Glucose Random 93 mg/dL (60-115); Lipase 11 U/L (8-78); Potassium 4.2 mmol/L (3.3-5.1); Sodium 138 mmol/L (135-145); Total Protein 7.4 g/dL (6.5-8.0)
[2023-02-04 23:06] VITALS: BP 120/73; PULSE 99; RESP 17; TEMP 37.2; O2SAT 98
[2023-02-04 23:15] LABS: Appearance Urine Clear; Color Urine Yellow; Glucose Urine UA Negative (Negative); Leukocyte Esterase Urine Trace (Negative); Nitrite Urine Negative (Negative); PH 7.5 (5.0-9.0); Specific Gravity - Urine >= 1.030 (1.005-1.025); UMIC TRIGGER UACC YES; Urine Blood Negative (Negative); Urine Ketones 40 mg/dL (Negative); Urine Protein 30 (1+) mg/dL (Neg-Trace)
[2023-02-04 23:17] LABS: UPreg QC Valid YES; Urine Pregnancy NEGATIVE (NEGATIVE)
[2023-02-04 23:51] LABS: Bacteria Urine 2+ (None Seen); Hyaline Casts Urine 0-2 /LPF (0-2); UACC Culture Trigger YES
[2023-02-05] MEDS: 0.9 % Sodium Chloride 1,000 ML 999 ML IV (00:34)
[2023-02-05] MEDS: ondansetron HCL 4 MG/2 ML VIAL IVPUSH (00:34)
[2023-02-05 01:07] VITALS: BP 114/71; PULSE 104; RESP 17; TEMP 37; O2SAT 100
[2023-02-05] MEDS: iohexoL 350 MG/ML 100 ML INFUS..BTL 85 ML IV (01:11)
[2023-02-05] MEDS: cefTRIAXone sodium 1 GM in 0.9 % Sodium Chloride 50 ML IV (02:13)
[2023-02-05] MEDS: Prochlorperazine Edisylate 10 MG/2 ML VIAL 5 MG IVPUSH (02:13)
[2023-02-05] MEDS: Morphine Sulfate 4 MG/ML CARTRIDGE IVPUSH (02:14)
[2023-02-05 02:17] LABS: Lactic Acid 1.4 mmol/L (0.5-2.0)
[2023-02-05 02:50] LABS: Amphetamine Screen Urine Not Detected (Not Detect); Barbiturates, Urine Not Detected (Not Detect); Benzodiazepines Screen Urine Not Detected (Not Detect); Cannabinoid Screen Urine Not Detected (Not Detect); Cocaine Screen Urine Not Detected (Not Detect); Fentanyl, urine Not Detected (Not Detect); Opiate Screen Urine Not Detected (Not Detect); Phencyclidine Screen Urine Not Detected (Not Detect)
--- NOTE | 2023-02-05 03:55 | PC.NURSE ---
Patient alert and oriented x3. Medication administered as per MAR. Patient notes decrease in pain 01/15. Crackers and apple juice given for PO challenge
[2023-02-05 04:24] VITALS: BP 101/59; PULSE 100; RESP 17; TEMP 37; O2SAT 98
== END 2023-02-05 05:39 | disposition home or self-care (01) ==
PROVIDERS: Physician Assistant; Emergency Provider Internal Medicine; PCP Internal Medicine
DX: K52.9 Noninfective gastroenteritis and colitis, unspecified (principal); N39.0 Urinary tract infection, site not specified; R10.30 Lower abdominal pain, unspecified; R11.2 Nausea with vomiting, unspecified; R10.13 Epigastric pain; Z79.899 Other long term (current) drug therapy
CPT/HCPCS: 36415; 74177; 80053; 80307; 81001; 81025; 83605; 83690; 85025; 87040; 87086; 96361; 96374; 96375; 99284; J0696; J2270; J2405; Q9967

== ENCOUNTER 2023-02-14 09:21 | Day surgery (SDC) | payer OTHER, SELFPAY ==
--- NOTE | ~2023-02-14 | FL_ITS ---
EXAMINATION: XR LUMBAR PUNCTURE CLINICAL INFORMATION: Headache. Question pseudotumor cerebri COMPARISON: None available. TECHNIQUE: Following explaining fluoroscopy-guided lumbar puncture procedure, benefits and risk, a written consent was obtained. Patient was placed prone on fluoroscopy table and an optimal site was selected and marked on the skin at the L3-L4 disc level. 1% lidocaine was injected puncture site. Through a small skin incision a 22-gauge spinal needle was inserted from the skin intrathecally. After observing CSF return, patient was quickly placed in left lateral leg is new and opening CSF pressure was obtained. Subsequently clear CSF fluid was collected in 4 test tubes. Postprocedure stylet was reintroduced and needle withdrawn. Complete hemostasis achieved at puncture site. Patient tolerated procedure extremely well simple Band-Aid applied at the puncture site. FINDINGS: There is maintained lumbar lordosis. The vertebral heights, alignment and disc heights are normal. Opening CSF pressure measured 9 cm of water. Approximately 8 mL clear CSF fluid was collected in 4 test tubes. FLUOROSCOPY TIME: 0.6 minutes DOSE AREA PRODUCT: 2.948 uGy-m2 (microgray-meter squared) FL/FL guided lumbar puncture LP IMPRESSION: 1. Successful fluoroscopically-guided lumbar puncture with no immediate complications. 2. The CSF fluid was collected in 4 test tubes.
[2023-02-14 10:02] VITALS: BMI 23.2
[2023-02-14 10:09] LABS: UPreg QC Valid YES; Urine Pregnancy NEGATIVE (NEGATIVE)
[2023-02-14 10:26] LABS: MANUAL DIFF FLAG NO
[2023-02-14 10:43] LABS: Basophils Absolute Auto 0.1 X10*3/uL (0.0-0.2); Basophils Percent Auto 0.9 % (0-2); Eosinophils Absolute Auto 0.1 X10*3/uL (0.0-0.4); Eosinophils Percent Auto 2.4 % (0-4); Hematocrit 37.3 % (37.0-47.0); Hemoglobin 12.5 g/dl (12.0-16.0); Imm Gran Abs Auto 0.01 X10*3/uL (0.00-0.03); Imm Gran Pct Auto 0.2 % (0.0-0.4); Lymphocytes Absolute Auto 3.2 X10*3/uL (1.2-4.9); Mean Corpuscular HGB Conc 33.5 g/dl (31.0-35.0); Mean Corpuscular Hemoglobin 29.5 pg (27.0-33.0); Mean Platelet Volume 11.5 fL (9.4-12.3); Monocytes Absolute Auto 0.4 X10*3/uL (0.1-1.2); Monocytes Percent Auto 6.6 % (2-11); Neutrophils Percent Auto 34.9 % (45-73); Platelet Count 232 X10*3/uL (160-400); Red Blood Count 4.24 X10*6/uL (4.20-5.50); Red Cell Distribution Width 12.1 % (11.0-16.0); White Blood Count 5.8 X10*3/uL (4.8-10.8)
[2023-02-14 10:50] LABS: Partial Thromboplastin Time 29.4 SEC (26.0-36.4)
[2023-02-14 12:25] VITALS: BP 112/72; PULSE 78; RESP 16; TEMP 36.8; O2SAT 98
[2023-02-14 12:40] VITALS: BP 104/71; PULSE 79; RESP 14; O2SAT 98
[2023-02-14 12:55] VITALS: BP 103/64; PULSE 85; RESP 12; O2SAT 100
[2023-02-14 13:10] VITALS: BP 102/65; PULSE 82; RESP 14; O2SAT 100
[2023-02-14 13:25] VITALS: BP 101/65; PULSE 88; RESP 12; O2SAT 100
[2023-02-14 13:39] LABS: Glucose CSF 57 mg/dL; Total Protein CSF 22.7 mg/dL (15-45)
[2023-02-14 13:46] LABS: CSF Appearance Clear, Colorless; CSF Tube # 2
[2023-02-14 13:53] LABS: Appearance CSF CLEAR; CSF Tube # 4; Color CSF COLORLESS; Red Blood Cell CSF 0 MM*3; White Blood Cell CSF 0 MM*3
[2023-02-14 14:10] VITALS: BP 109/66; PULSE 85; RESP 16; O2SAT 99
== END 2023-02-14 14:20 | disposition home or self-care (01) ==
PROVIDERS: Psychiatry & Neurology Neurology; PCP Internal Medicine; Visit Provider Radiology Diagnostic Radiology
PROC: 009U3ZZ Drainage of Spinal Canal, Percutaneous Approach (ICD-10-PCS; CPT 62270; principal; 2023-02-14 11:00)
DX: G44.209 Tension-type headache, unspecified, not intractable (principal); G47.00 Insomnia, unspecified; F32.9 Major depressive disorder, single episode, unspecified; F43.10 Post-traumatic stress disorder, unspecified; Z79.899 Other long term (current) drug therapy
CPT/HCPCS: 36415; 62328; 81025; 82945; 84157; 85025; 85610; 85730; 87015; 87070; 87116; 87205; 87206; 89051

== ENCOUNTER 2023-02-16 15:17 | Observation (INO) | payer OTHER, SELFPAY ==
--- NOTE | ~2023-02-16 | CT_ITS ---
EXAMINATION: CT head/brain wo IV con CLINICAL INFORMATION: Reason for Exam headache COMPARISON: None. TECHNIQUE: Contiguous axial imaging was performed from the skull base to vertex without intravenous contrast. Sagittal and coronal reformatted images were obtained. This CT examination was performed using dose optimization techniques as appropriate, variously including the following: * Automated exposure control * Adjustment of mA and/or kV according to patient size (this includes techniques or standardized protocols for targeted exams where dose is matched to indication/reason for exam; i.e. extremities or head) Use of iterative reconstruction technique DLP: 534 mGy-cm FINDINGS: No acute osseous or soft tissue abnormality. The mastoid air cells and visualized portions of the paranasal sinuses are well aerated. There is no evidence of acute intracranial hemorrhage or territorial infarction. No abnormal mass effect or midline shift is seen. Shepherd to white matter differentiation is well preserved. No extra-axial fluid collections are identified. No hydrocephalus. No significant volume loss. There is no abnormal attenuation within the brain parenchyma. CT/CT head/brain wo IV con IMPRESSION: No acute intracranial abnormality including hemorrhage, mass effect, hydrocephalus, or acute territorial edematous infarction.
[2023-02-16 15:27] VITALS: BP 147/97; PULSE 102; RESP 18; TEMP 36.6; O2SAT 100; BMI 23.2
--- NOTE | 2023-02-16 15:28 | ED.HA ---
HPI - Headache General Chief Complaint: Headache <MAYNOR Hunter Last Filed: 02/16/23 15:36> Stated Complaint: migraine <MAYNOR Hunter Last Filed: 02/16/23 15:36> Time Seen by Provider: 02/16/23 17:57 <MAYNOR Hunter Last Filed: 02/16/23 15:36> Source: patient <MAYNOR Clement Last Filed: 02/17/23 00:35> Mode of arrival: ambulatory <MAYNOR Clement Last Filed: 02/17/23 00:35> Limitations: no limitations <MAYNOR Clement Last Filed: 02/17/23 00:35> History of Present Illness HPI Narrative: 27-year-old female past medical history of migraines and tension headaches presents to the ED with new onset headache worsening since Sunday. Patient reports that she was seen and had a lumbar puncture performed on Sunday to work up her extensive history of migraine. She reports the pain is worse when she stands or sits up, additionally endorses upper back pain that she reports began after the LP. Endorses photophobia, weakness and nausea additionally. No vomiting, diarrhea, fevers, chills, numbness, vision changes, cp, sob, tingling, saddle paresthesias, LOC, dizziness. Patient is continent of bowel and bladder. <MAYNOR Clement Last Filed: 02/17/23 00:35> Related Data Home Medications: Home Medications Medication Instructions Recorded Confirmed amitriptyline 25 mg tablet 25 mg PO DAILY 02/14/23 02/14/23 <MAYNOR Hunter Last Filed: 02/16/23 15:36> Allergies/Adverse Reactions: Allergies Allergy/AdvReac Type Severity Reaction Status Date / Time No Known Allergies Allergy Verified 02/16/23 15:32 <MAYNOR Hunter Last Filed: 02/16/23 15:36> Review of Systems Review of Systems: Constitutional : No Weight loss, No Fever, No Chills, No Fatigue, No Malaise, + Nausea, No vomiting, No diarrhea ENT/Mouth : No sore throat, No Rhinorrhea Eyes: No Eye Pain, No Swelling, No Redness, +Photophobia Cardiovascular : No Chest Pain, No SOB, No Dyspnea on Exertion, No Orthopnea, No Edema, No Palpitations Respiratory : No Cough, No Sputum, No Wheezing Gastrointestinal : No Nausea, No Vomiting, No Diarrhea, No Constipation, No abdominal Pain, No Hematochezia, No Melena Genitourinary : No Dysuria, No Urinary Frequency, No Hematuria, Musculoskeletal : No joint pain, No Myalgias, No Joint Swelling Skin : No Skin Lesions, No rash Neuro : + Weakness, No Numbness, No Dizziness, + Headache Psych : No Anxiety/Panic, No Depression Heme/Lymph: No Bruising, No Bleeding,No Lymphadenopathy Endocrine : No Polyuria, No Polydipsia All other systems reviewed and are negative <MAYNOR Clement - Last Filed: 02/17/23 00:35> Yes all other systems are reviewed and are negative <MAYNOR Clement - Last Filed: 02/17/23 00:35> [facility] Past Medical History Attestation statement: The following information was validated with the patient. <MAYNOR Clement - Last Filed: 02/17/23 00:35> Source: old records reviewed, obtained from family and nursing notes reviewed <MAYNOR Clement - Last Filed: 02/17/23 00:35> Surgical History: Surgical History History of breast augmentation History of surgery on arm <MAYNOR Hunter - Last Filed: 02/16/23 15:36> Social History Social History: Social History Alcohol intake: former Patient Tobacco Use Status: Never used Tobacco Smoked in Last 30 Days: No Advance Directives: No Advance Directives Information Provided: No Nutrition Risks: No Nutritional Risk Patient : No <MAYNOR Hunter - Last Filed: 02/16/23 15:36> Physical Exam Vital Signs: Vital Signs: Last Vital Signs Temp 98.7 F 02/17/23 13:21 Pulse 110 H 02/17/23 18:15 Resp 14 02/17/23 18:15 BP 133/87 02/17/23 16:12 Pulse Ox 98 02/17/23 16:12 O2 Del Method Room Air 02/17/23 16:12 BMI result Body Mass Index 23.2 <Dodie Angelo PA - Last Filed: 02/16/23 15:36> Vital Signs: Last Vital Signs Temp 98.7 F 02/17/23 13:21 Pulse 110 H 02/17/23 18:15 Resp 14 02/17/23 18:15 BP 133/87 02/17/23 16:12 Pulse Ox 98 02/17/23 16:12 O2 Del Method Room Air 02/17/23 16:12 BMI result Body Mass Index 23.2 VSS <MAYNOR Clement - Last Filed: 02/17/23 00:35> Vital Signs: Last Vital Signs Temp 98.7 F 02/17/23 13:21 Pulse 110 H 02/17/23 18:15 Resp 14 02/17/23 18:15 BP 133/87 02/17/23 16:12 Pulse Ox 98 02/17/23 16:12 O2 Del Method Room Air 02/17/23 16:12 BMI result Body Mass Index 23.2 <Winnie Sams PA - Last Filed: 02/17/23 18:43> Vital Signs: Last Vital Signs Temp 98.7 F 02/17/23 13:21 Pulse 110 H 02/17/23 18:15 Resp 14 02/17/23 18:15 BP 133/87 02/17/23 16:12 Pulse Ox 98 02/17/23 16:12 O2 Del Method Room Air 02/17/23 16:12 BMI result Body Mass Index 23.2 <Jaqueline Jones PA - Last Filed: 02/17/23 16:46> Appearance: Alert.? Oriented X3.? Patient is laying flat on the stretcher with sunglasses on. Head: Normocephalic, atraumatic, no step-offs or deformities Eyes: Pupils equal, round and reactive to light.?+ Photophobia Neck: Normal inspection.? Neck supple.? CVS: Normal heart rate and rhythm.? Pulses normal.? Respiratory: No respiratory distress.? Breath sounds normal.? Abdomen: Soft and nontender.? Skin: Skin warm and dry.? Normal skin color.? Normal skin turgor.? Extremities: No lower extremity edema.? No calf ttp. 5/5 strength to bilateral upper and lower extremities Back: No midline tenderness, no C-spine tenderness, full range of motion, no CVA tenderness bilaterally, paraspinous pain to palpation of upper back Neuro: Oriented X 3.? No motor deficit.? No sensory deficit. CN 2-12 intact. Normal [id number], [id number], ambulating with steady gait normal coordination. Negative Romberg and pronator drift. <MAYNOR Clement - Last Filed: 02/17/23 00:35> Course Course Course Narrative: RME: 27-year-old female with a past medical history of tension headaches s/p outpatient LP on 02/14 at our facility to rule out pseudotumor cerebri presenting to the ED c/o spinal PERAZA since yesterday, worse today w/assoc nausea. Took Motrin around 10MA w/o relief Patient ambulating with steady gait, however lying flat in seat in triage, wearing sun glasses, nontoxic labs, IVF ordered Care nurse aware and will contact anesthesiology Full HPI, ROS and PE to be performed by primary ED provider. <MAYNOR Hunter - Last Filed: 02/16/23 15:36> Reevaluation(s) Reevaluation #1: CBC within normal limits. Chemistry with no acute findings requiring intervention. Beta hCG negative. Head CT no acute intracranial abnormality including hemorrhage, mass effect, hydrocephalus or acute territorial dermis infarction. Will re-evaluate at a later time <MAYNOR Clement Last Filed: 02/17/23 00:35> Time: 00:24 <MAYNOR Clement Last Filed: 02/17/23 00:35> Reevaluation #2: Patient is still reporting 07/17 pain. <MAYNOR Clement Last Filed: 02/17/23 00:35> Time: 21:10 <MAYNOR Clement Last Filed: 02/17/23 00:35> Reevaluation #3: Patient still reporting severe pain, Fioricet ordered. She will likely need a blood patch. Will put in a consult to anesthesia. Will keep patient here in the emergency department until they can be seen by Anesthesia in the morning. aware. Cosult placed <MAYNOR Clement - Last Filed: 02/17/23 00:35> Time: 00:32 <MAYNOR Clement - Last Filed: 02/17/23 00:35> Additional Reevaluation(s): 0959 - Physician observation continued. VS stable. Anesthesiology consult pending. Will continue to monitor. 1506 - Blood patch did not work, pt still experiencing significant pain dilauded <MAYNOR Song - Last Filed: 02/17/23 18:43> 0959 - Physician observation continued. VS stable. Anesthesiology consult pending. Will continue to monitor. 1506 - Blood patch did not work, pt still experiencing significant pain therefore additional meds were ordered. We also spoke to the hospitalist Dr. Millard who will admit patient for intractable headache and possible repeat blood patch tomorrow by anesthesiologist <MAYNOR Platt - Last Filed: 02/17/23 16:46> Medications Administered Discontinued Medications Generic Name Dose Route Start Last Admin Trade Name Lilia PRN Reason Stop Dose Admin Acetaminophen/Butalbital/Caffeine 1 tab 02/17/23 00:25 02/17/23 01:04 Butalb/Acetamin/Caff 50/325/40 Tablet PO 02/17/23 00:26 1 tab ONCE ONE Administration Dexamethasone Sodium Phosphate 10 mg 02/17/23 15:22 02/17/23 16:10 Dexamethasone Sod Phosphate 10 Mg/Ml Vial IVPUSH 02/17/23 15:23 10 mg ONCE ONE Administration Diphenhydramine HCl 50 mg 02/16/23 18:13 02/16/23 18:24 Diphenhydramine Hcl 50 Mg/Ml Vial IM 02/16/23 18:14 50 mg ONCE ONE Administration Hydromorphone HCl 1 mg 02/17/23 15:22 02/17/23 16:10 Hydromorphone Hcl 1 Mg/Ml Syringe IVPUSH 02/17/23 15:23 1 mg ONCE ONE Administration Protocol Sodium Chloride 1,000 mls @ 999 mls/hr 02/17/23 00:45 02/17/23 02:35 Ns IV 02/17/23 01:45 Infused .Q1H1M DEZ Infusion Sodium Chloride 1,000 mls @ 999 mls/hr 02/17/23 00:45 02/17/23 02:35 Ns IV 02/17/23 01:45 Infused .Q1H1M DEZ Infusion Magnesium Sulfate 2 gm in 50 mls @ 25 mls/hr 02/17/23 15:22 02/17/23 18:38 Magnesium Sulfate/H2o IV 02/17/23 17:21 Infused ONCE ONE Infusion Sodium Chloride 2,000 mls @ 999 mls/hr 02/17/23 15:26 02/17/23 18:38 Ns IVCONT 02/17/23 17:26 Infused .Q2H1M ONE Infusion Caffeine/Sodium Benzoate 250 501 mls @ 501 mls/hr 02/17/23 16:30 02/17/23 18:16 mg/ Sodium Chloride IV 02/17/23 17:29 501 mls/hr ONCE ONE Administration Ketorolac Tromethamine 30 mg 02/16/23 18:13 02/16/23 18:24 Ketorolac Tromethamine 30 Mg/Ml Vial IM 02/16/23 18:14 30 mg ONCE ONE Administration Metoclopramide HCl 10 mg 02/16/23 18:13 02/16/23 18:24 Metoclopramide Hcl 10 Mg/2 Ml Vial IM 02/16/23 18:14 10 mg ONCE ONE Administration Morphine Sulfate 15 mg 02/16/23 21:10 02/16/23 21:41 Morphine Sulfate Immed Release 15 Mg Tablet PO 02/16/23 21:11 15 mg ONCE ONE Administration <MAYNOR Hunter - Last Filed: 02/16/23 15:36> Medications Administered Discontinued Medications Generic Name Dose Route Start Last Admin Trade Name Freq PRN Reason Stop Dose Admin Acetaminophen/Butalbital/Caffeine 1 tab 02/17/23 00:25 02/17/23 01:04 Butalb/Acetamin/Caff 50/325/40 Tablet PO 02/17/23 00:26 1 tab ONCE ONE Administration Dexamethasone Sodium Phosphate 10 mg 02/17/23 15:22 02/17/23 16:10 Dexamethasone Sod Phosphate 10 Mg/Ml Vial IVPUSH 02/17/23 15:23 10 mg ONCE ONE Administration Diphenhydramine HCl 50 mg 02/16/23 18:13 02/16/23 18:24 Diphenhydramine Hcl 50 Mg/Ml Vial IM 02/16/23 18:14 50 mg ONCE ONE Administration Hydromorphone HCl 1 mg 02/17/23 15:22 02/17/23 16:10 Hydromorphone Hcl 1 Mg/Ml Syringe IVPUSH 02/17/23 15:23 1 mg ONCE ONE Administration Protocol Sodium Chloride 1,000 mls @ 999 mls/hr 02/17/23 00:45 02/17/23 02:35 Ns IV 02/17/23 01:45 Infused .Q1H1M DEZ Infusion Sodium Chloride 1,000 mls @ 999 mls/hr 02/17/23 00:45 02/17/23 02:35 Ns IV 02/17/23 01:45 Infused .Q1H1M DEZ Infusion Magnesium Sulfate 2 gm in 50 mls @ 25 mls/hr 02/17/23 15:22 02/17/23 18:38 Magnesium Sulfate/H2o IV 02/17/23 17:21 Infused ONCE ONE Infusion Sodium Chloride 2,000 mls @ 999 mls/hr 02/17/23 15:26 02/17/23 18:38 Ns IVCONT 02/17/23 17:26 Infused .Q2H1M ONE Infusion Caffeine/Sodium Benzoate 250 501 mls @ 501 mls/hr 02/17/23 16:30 02/17/23 18:16 mg/ Sodium Chloride IV 02/17/23 17:29 501 mls/hr ONCE ONE Administration Ketorolac Tromethamine 30 mg 02/16/23 18:13 02/16/23 18:24 Ketorolac Tromethamine 30 Mg/Ml Vial IM 02/16/23 18:14 30 mg ONCE ONE Administration Metoclopramide HCl 10 mg 02/16/23 18:13 02/16/23 18:24 Metoclopramide Hcl 10 Mg/2 Ml Vial IM 02/16/23 18:14 10 mg ONCE ONE Administration Morphine Sulfate 15 mg 02/16/23 21:10 02/16/23 21:41 Morphine Sulfate Immed Release 15 Mg Tablet PO 02/16/23 21:11 15 mg ONCE ONE Administration <MAYNOR Clement - Last Filed: 02/17/23 00:35> Medications Administered Discontinued Medications Generic Name Dose Route Start Last Admin Trade Name Freq PRN Reason Stop Dose Admin Acetaminophen/Butalbital/Caffeine 1 tab 02/17/23 00:25 02/17/23 01:04 Butalb/Acetamin/Caff 50/325/40 Tablet PO 02/17/23 00:26 1 tab ONCE ONE Administration Dexamethasone Sodium Phosphate 10 mg 02/17/23 15:22 02/17/23 16:10 Dexamethasone Sod Phosphate 10 Mg/Ml Vial IVPUSH 02/17/23 15:23 10 mg ONCE ONE Administration Diphenhydramine HCl 50 mg 02/16/23 18:13 02/16/23 18:24 Diphenhydramine Hcl 50 Mg/Ml Vial IM 02/16/23 18:14 50 mg ONCE ONE Administration Hydromorphone HCl 1 mg 02/17/23 15:22 02/17/23 16:10 Hydromorphone Hcl 1 Mg/Ml Syringe IVPUSH 02/17/23 15:23 1 mg ONCE ONE Administration Protocol Sodium Chloride 1,000 mls @ 999 mls/hr 02/17/23 00:45 02/17/23 02:35 Ns IV 02/17/23 01:45 Infused .Q1H1M DEZ Infusion Sodium Chloride 1,000 mls @ 999 mls/hr 02/17/23 00:45 02/17/23 02:35 Ns IV 02/17/23 01:45 Infused .Q1H1M DEZ Infusion Magnesium Sulfate 2 gm in 50 mls @ 25 mls/hr 02/17/23 15:22 02/17/23 18:38 Magnesium Sulfate/H2o IV 02/17/23 17:21 Infused ONCE ONE Infusion Sodium Chloride 2,000 mls @ 999 mls/hr 02/17/23 15:26 02/17/23 18:38 Ns IVCONT 02/17/23 17:26 Infused .Q2H1M ONE Infusion Caffeine/Sodium Benzoate 250 501 mls @ 501 mls/hr 02/17/23 16:30 02/17/23 18:16 mg/ Sodium Chloride IV 02/17/23 17:29 501 mls/hr ONCE ONE Administration Ketorolac Tromethamine 30 mg 02/16/23 18:13 02/16/23 18:24 Ketorolac Tromethamine 30 Mg/Ml Vial IM 02/16/23 18:14 30 mg ONCE ONE Administration Metoclopramide HCl 10 mg 02/16/23 18:13 02/16/23 18:24 Metoclopramide Hcl 10 Mg/2 Ml Vial IM 02/16/23 18:14 10 mg ONCE ONE Administration Morphine Sulfate 15 mg 02/16/23 21:10 02/16/23 21:41 Morphine Sulfate Immed Release 15 Mg Tablet PO 02/16/23 21:11 15 mg ONCE ONE Administration <MAYNOR Song - Last Filed: 02/17/23 18:43> Medications Administered Discontinued Medications Generic Name Dose Route Start Last Admin Trade Name Lilia PRN Reason Stop Dose Admin Acetaminophen/Butalbital/Caffeine 1 tab 02/17/23 00:25 02/17/23 01:04 Butalb/Acetamin/Caff 50/325/40 Tablet PO 02/17/23 00:26 1 tab ONCE ONE Administration Dexamethasone Sodium Phosphate 10 mg 02/17/23 15:22 02/17/23 16:10 Dexamethasone Sod Phosphate 10 Mg/Ml Vial IVPUSH 02/17/23 15:23 10 mg ONCE ONE Administration Diphenhydramine HCl 50 mg 02/16/23 18:13 02/16/23 18:24 Diphenhydramine Hcl 50 Mg/Ml Vial IM 02/16/23 18:14 50 mg ONCE ONE Administration Hydromorphone HCl 1 mg 02/17/23 15:22 02/17/23 16:10 Hydromorphone Hcl 1 Mg/Ml Syringe IVPUSH 02/17/23 15:23 1 mg ONCE ONE Administration Protocol Sodium Chloride 1,000 mls @ 999 mls/hr 02/17/23 00:45 02/17/23 02:35 Ns IV 02/17/23 01:45 Infused .Q1H1M DEZ Infusion Sodium Chloride 1,000 mls @ 999 mls/hr 02/17/23 00:45 02/17/23 02:35 Ns IV 02/17/23 01:45 Infused .Q1H1M DEZ Infusion Magnesium Sulfate 2 gm in 50 mls @ 25 mls/hr 02/17/23 15:22 02/17/23 18:38 Magnesium Sulfate/H2o IV 02/17/23 17:21 Infused ONCE ONE Infusion Sodium Chloride 2,000 mls @ 999 mls/hr 02/17/23 15:26 02/17/23 18:38 Ns IVCONT 02/17/23 17:26 Infused .Q2H1M ONE Infusion Caffeine/Sodium Benzoate 250 501 mls @ 501 mls/hr 02/17/23 16:30 02/17/23 18:16 mg/ Sodium Chloride IV 02/17/23 17:29 501 mls/hr ONCE ONE Administration Ketorolac Tromethamine 30 mg 02/16/23 18:13 02/16/23 18:24 Ketorolac Tromethamine 30 Mg/Ml Vial IM 02/16/23 18:14 30 mg ONCE ONE Administration Metoclopramide HCl 10 mg 02/16/23 18:13 02/16/23 18:24 Metoclopramide Hcl 10 Mg/2 Ml Vial IM 02/16/23 18:14 10 mg ONCE ONE Administration Morphine Sulfate 15 mg 02/16/23 21:10 02/16/23 21:41 Morphine Sulfate Immed Release 15 Mg Tablet PO 02/16/23 21:11 15 mg ONCE ONE Administration <MAYNOR Platt - Last Filed: 02/17/23 16:46> Medical Decision Making Medical Decision Making [facility] Narrative: 27 year old F presents with migraine X 3 days s/p LP PE benign Concerns for migraine vs complex migrane vs spinal headache. Unlikley ICH, stroke, posterior stroke, meingitiis, encephalitis Plan- labs, imaging, meds. <MAYNOR Clement - Last Filed: 02/17/23 00:35> Differential Diagnosis Differential Diagnoses: The differential diagnosis associated with the presentation includes <MAYNOR Clement - Last Filed: 02/17/23 00:35> Concerns for migraine vs complex migrane. Unlikley ICH, stroke, posterior stroke, meingitiis, encephalitis <MAYNOR Clement - Last Filed: 02/17/23 00:35> Admission/Observation Consideration of admission/observation: Escalation of care including admission/observation considered <MAYNOR Clement Last Filed: 02/17/23 00:35> Lab Data [facility] Lab Attestation statement: I reviewed the patient's lab results. <MAYNOR Clement - Last Filed: 02/17/23 00:35> Result Diagrams: 02/16/23 16:13 02/16/23 16:13 <MAYNOR Hunter - Last Filed: 02/16/23 15:36> Labs: Lab Results 02/16/23 02/16/23 Range/Units 16:13 16:13 WBC 7.4 (4.8-10.8) X10*3/uL RBC 4.58 (4.20-5.50) X10*6/uL Hgb 13.2 (12.0-16.0) g/dl Hct 39.2 (37.0-47.0) % MCV 85.6 (80.0-98.0) fL MCH 28.8 (27.0-33.0) pg MCHC 33.7 (31.0-35.0) g/dl RDW 12.0 (11.0-16.0) % Plt Count 230 (160-400) X10*3/uL MPV 11.4 (9.4-12.3) fL Immature Gran % (Auto) 0.1 (0.0-0.4) % Neut % (Auto) 60.7 (45-73) % Lymph % (Auto) 33.0 (20-40) % [place] % (Auto) 5.2 (2-11) % Eos % (Auto) 0.7 (0-4) % Baso % (Auto) 0.3 (0-2) % Lymph # (Auto) 2.4 (1.2-4.9) X10*3/uL [place] # (Auto) 0.4 (0.1-1.2) X10*3/uL Eos # (Auto) 0.1 (0.0-0.4) X10*3/uL Baso # (Auto) 0.0 (0.0-0.2) X10*3/uL Abs Immat Gran (auto) 0.01 (0.00-0.03) X10*3/uL Absolute Neuts (auto) 4.5 (2.0-8.3) x10*3/uL Absolute Nucleated RBC 0.000 (0.0-0.012) X10*3/uL Nucleated RBC % (auto) 0.0 (0.0-0.2) /100WBC Sodium 136 (135-145) mmol/L Potassium 3.8 (3.3-5.1) mmol/L Chloride 105 (96-108) mmol/L Carbon Dioxide 24 (22-29) mmol/L Anion Gap 11 L (12-20) BUN 8 L (9-16) mg/dL Creatinine 0.77 (0.5-1.4) mg/dL Estim Creat Clear Calc 86.8 Estimated GFR > 60 Random Glucose 125 H (60-115) mg/dL Calcium 9.6 (8.4-10.2) mg/dL Total Bilirubin 0.5 (0.0-1.0) mg/dL Direct Bilirubin 0.1 (0.0-0.5) mg/dL AST 15 (5-31) U/L ALT 23 (0-31) U/L Alkaline Phosphatase 45 (39-117) U/L Total Protein 7.2 (6.5-8.0) g/dL Albumin 4.1 (3.5-5.0) g/dL Beta HCG, Quant < 2 mIU/mL <MAYNOR Hunter - Last Filed: 02/16/23 15:36> Lab Results 02/16/23 02/16/23 Range/Units 16:13 16:13 WBC 7.4 (4.8-10.8) X10*3/uL RBC 4.58 (4.20-5.50) X10*6/uL Hgb 13.2 (12.0-16.0) g/dl Hct 39.2 (37.0-47.0) % MCV 85.6 (80.0-98.0) fL MCH 28.8 (27.0-33.0) pg MCHC 33.7 (31.0-35.0) g/dl RDW 12.0 (11.0-16.0) % Plt Count 230 (160-400) X10*3/uL MPV 11.4 (9.4-12.3) fL Immature Gran % (Auto) 0.1 (0.0-0.4) % Neut % (Auto) 60.7 (45-73) % Lymph % (Auto) 33.0 (20-40) % [place] % (Auto) 5.2 (2-11) % Eos % (Auto) 0.7 (0-4) % Baso % (Auto) 0.3 (0-2) % Lymph # (Auto) 2.4 (1.2-4.9) X10*3/uL [place] # (Auto) 0.4 (0.1-1.2) X10*3/uL Eos # (Auto) 0.1 (0.0-0.4) X10*3/uL Baso # (Auto) 0.0 (0.0-0.2) X10*3/uL Abs Immat Gran (auto) 0.01 (0.00-0.03) X10*3/uL Absolute Neuts (auto) 4.5 (2.0-8.3) x10*3/uL Absolute Nucleated RBC 0.000 (0.0-0.012) X10*3/uL Nucleated RBC % (auto) 0.0 (0.0-0.2) /100WBC Sodium 136 (135-145) mmol/L Potassium 3.8 (3.3-5.1) mmol/L Chloride 105 (96-108) mmol/L Carbon Dioxide 24 (22-29) mmol/L Anion Gap 11 L (12-20) BUN 8 L (9-16) mg/dL Creatinine 0.77 (0.5-1.4) mg/dL Estim Creat Clear Calc 86.8 Estimated GFR > 60 Random Glucose 125 H (60-115) mg/dL Calcium 9.6 (8.4-10.2) mg/dL Total Bilirubin 0.5 (0.0-1.0) mg/dL Direct Bilirubin 0.1 (0.0-0.5) mg/dL AST 15 (5-31) U/L ALT 23 (0-31) U/L Alkaline Phosphatase 45 (39-117) U/L Total Protein 7.2 (6.5-8.0) g/dL Albumin 4.1 (3.5-5.0) g/dL Beta HCG, Quant < 2 mIU/mL <MAYNOR Clement - Last Filed: 02/17/23 00:35> Lab Results 02/16/23 02/16/23 Range/Units 16:13 16:13 WBC 7.4 (4.8-10.8) X10*3/uL RBC 4.58 (4.20-5.50) X10*6/uL Hgb 13.2 (12.0-16.0) g/dl Hct 39.2 (37.0-47.0) % MCV 85.6 (80.0-98.0) fL MCH 28.8 (27.0-33.0) pg MCHC 33.7 (31.0-35.0) g/dl RDW 12.0 (11.0-16.0) % Plt Count 230 (160-400) X10*3/uL MPV 11.4 (9.4-12.3) fL Immature Gran % (Auto) 0.1 (0.0-0.4) % Neut % (Auto) 60.7 (45-73) % Lymph % (Auto) 33.0 (20-40) % [place] % (Auto) 5.2 (2-11) % Eos % (Auto) 0.7 (0-4) % Baso % (Auto) 0.3 (0-2) % Lymph # (Auto) 2.4 (1.2-4.9) X10*3/uL [place] # (Auto) 0.4 (0.1-1.2) X10*3/uL Eos # (Auto) 0.1 (0.0-0.4) X10*3/uL Baso # (Auto) 0.0 (0.0-0.2) X10*3/uL Abs Immat Gran (auto) 0.01 (0.00-0.03) X10*3/uL Absolute Neuts (auto) 4.5 (2.0-8.3) x10*3/uL Absolute Nucleated RBC 0.000 (0.0-0.012) X10*3/uL Nucleated RBC % (auto) 0.0 (0.0-0.2) /100WBC Sodium 136 (135-145) mmol/L Potassium 3.8 (3.3-5.1) mmol/L Chloride 105 (96-108) mmol/L Carbon Dioxide 24 (22-29) mmol/L Anion Gap 11 L (12-20) BUN 8 L (9-16) mg/dL Creatinine 0.77 (0.5-1.4) mg/dL Estim Creat Clear Calc 86.8 Estimated GFR > 60 Random Glucose 125 H (60-115) mg/dL Calcium 9.6 (8.4-10.2) mg/dL Total Bilirubin 0.5 (0.0-1.0) mg/dL Direct Bilirubin 0.1 (0.0-0.5) mg/dL AST 15 (5-31) U/L ALT 23 (0-31) U/L Alkaline Phosphatase 45 (39-117) U/L Total Protein 7.2 (6.5-8.0) g/dL Albumin 4.1 (3.5-5.0) g/dL Beta HCG, Quant < 2 mIU/mL <MAYNOR Song - Last Filed: 02/17/23 18:43> Lab Results 02/16/23 02/16/23 Range/Units 16:13 16:13 WBC 7.4 (4.8-10.8) X10*3/uL RBC 4.58 (4.20-5.50) X10*6/uL Hgb 13.2 (12.0-16.0) g/dl Hct 39.2 (37.0-47.0) % MCV 85.6 (80.0-98.0) fL MCH 28.8 (27.0-33.0) pg MCHC 33.7 (31.0-35.0) g/dl RDW 12.0 (11.0-16.0) % Plt Count 230 (160-400) X10*3/uL MPV 11.4 (9.4-12.3) fL Immature Gran % (Auto) 0.1 (0.0-0.4) % Neut % (Auto) 60.7 (45-73) % Lymph % (Auto) 33.0 (20-40) % [place] % (Auto) 5.2 (2-11) % Eos % (Auto) 0.7 (0-4) % Baso % (Auto) 0.3 (0-2) % Lymph # (Auto) 2.4 (1.2-4.9) X10*3/uL [place] # (Auto) 0.4 (0.1-1.2) X10*3/uL Eos # (Auto) 0.1 (0.0-0.4) X10*3/uL Baso # (Auto) 0.0 (0.0-0.2) X10*3/uL Abs Immat Gran (auto) 0.01 (0.00-0.03) X10*3/uL Absolute Neuts (auto) 4.5 (2.0-8.3) x10*3/uL Absolute Nucleated RBC 0.000 (0.0-0.012) X10*3/uL Nucleated RBC % (auto) 0.0 (0.0-0.2) /100WBC Sodium 136 (135-145) mmol/L Potassium 3.8 (3.3-5.1) mmol/L Chloride 105 (96-108) mmol/L Carbon Dioxide 24 (22-29) mmol/L Anion Gap 11 L (12-20) BUN 8 L (9-16) mg/dL Creatinine 0.77 (0.5-1.4) mg/dL Estim Creat Clear Calc 86.8 Estimated GFR > 60 Random Glucose 125 H (60-115) mg/dL Calcium 9.6 (8.4-10.2) mg/dL Total Bilirubin 0.5 (0.0-1.0) mg/dL Direct Bilirubin 0.1 (0.0-0.5) mg/dL AST 15 (5-31) U/L ALT 23 (0-31) U/L Alkaline Phosphatase 45 (39-117) U/L Total Protein 7.2 (6.5-8.0) g/dL Albumin 4.1 (3.5-5.0) g/dL Beta HCG, Quant < 2 mIU/mL <MAYNOR Platt - Last Filed: 02/17/23 16:46> Independent Interpretation I performed an independent interpretation of an: CT Scan <MAYNOR Clement - Last Filed: 02/17/23 00:35> Radiology Impression Discussion of test interpretation with radiology: I have reviewed the radiologist's reading. <MAYNOR Clement Last Filed: 02/17/23 00:35> Core Measures AMI core measures followed: Yes <MAYNOR Clement Last Filed: 02/17/23 00:35> Measure exclusions: not indicated <MAYNOR Clement Last Filed: 02/17/23 00:35> Critical Care Time Critical Care Time Critical Care Time: No <MAYNOR Clement Last Filed: 02/17/23 00:35> Discharge Plan Discharge Clinical Impression: Headache <MAYNOR Hunter - Last Filed: 02/16/23 15:36> Patient Disposition: Admitted As Inpatient <MANYOR Hunter - Last Filed: 02/16/23 15:36>
[2023-02-16 16:23] LABS: Basophils Percent Auto 0.3 % (0-2); Eosinophils Absolute Auto 0.1 X10*3/uL (0.0-0.4); Eosinophils Percent Auto 0.7 % (0-4); Hematocrit 39.2 % (37.0-47.0); Hemoglobin 13.2 g/dl (12.0-16.0); Imm Gran Abs Auto 0.01 X10*3/uL (0.00-0.03); Imm Gran Pct Auto 0.1 % (0.0-0.4); Lymphocytes Absolute Auto 2.4 X10*3/uL (1.2-4.9); MANUAL DIFF FLAG NO; Mean Corpuscular HGB Conc 33.7 g/dl (31.0-35.0); Mean Corpuscular Hemoglobin 28.8 pg (27.0-33.0); Mean Corpuscular Volume 85.6 fL (80.0-98.0); Mean Platelet Volume 11.4 fL (9.4-12.3); Monocytes Absolute Auto 0.4 X10*3/uL (0.1-1.2); Monocytes Percent Auto 5.2 % (2-11); Neutrophils Absolute Auto 4.5 x10*3/uL (2.0-8.3); Neutrophils Percent Auto 60.7 % (45-73); Platelet Count 230 X10*3/uL (160-400); Red Blood Count 4.58 X10*6/uL (4.20-5.50); White Blood Count 7.4 X10*3/uL (4.8-10.8)
[2023-02-16 17:14] VITALS: BP 119/82; PULSE 88; RESP 16; TEMP 37.1; O2SAT 98
[2023-02-16 17:57] LABS: Alanine Aminotransferase 23 U/L (0-31); Albumin Level 4.1 g/dL (3.5-5.0); Alkaline Phosphatase 45 U/L (39-117); Anion Gap 11 (12-20); Aspartate Amino Transferase 15 U/L (5-31); Bilirubin Direct 0.1 mg/dL (0.0-0.5); Bilirubin Total 0.5 mg/dL (0.0-1.0); Blood Urea Nitrogen 8 mg/dL (9-16); Calcium 9.6 mg/dL (8.4-10.2); Carbon Dioxide 24 mmol/L (22-29); Chloride 105 mmol/L (96-108); Creatinine Clr Calc Pharmacy 86.8; Estimated Glomerular Filt Rate > 60; Glucose Random 125 mg/dL (60-115); HCG Quantitative < 2 mIU/mL; Potassium 3.8 mmol/L (3.3-5.1); Sodium 136 mmol/L (135-145); Total Protein 7.2 g/dL (6.5-8.0)
[2023-02-16] MEDS: Metoclopramide HCl 10 MG/2 ML VIAL IM (18:24)
[2023-02-16] MEDS: diphenhydrAMINE HCL 50 MG/ML VIAL IM (18:24)
[2023-02-16] MEDS: Ketorolac Tromethamine 30 MG/ML VIAL IM (18:24)
[2023-02-16] MEDS: Morphine Sulfate Immed Release 15 MG TABLET PO (21:41)
[2023-02-16 21:43] VITALS: BP 128/85; PULSE 84; RESP 14; O2SAT 100
[2023-02-17] MEDS: Butalb/Acetamin/Caff 50/325/40 TABLET 1 TAB PO (01:04)
[2023-02-17] MEDS: 0.9 % Sodium Chloride 1,000 ML 999 ML IV ×2 (01:11→01:12)
[2023-02-17 02:33] VITALS: BP 143/93; PULSE 93; RESP 12; O2SAT 100
[2023-02-17 06:00] VITALS: BP 121/73; PULSE 96; RESP 16; TEMP 37.1; O2SAT 97
--- NOTE | 2023-02-17 08:59 | PC.NURSE ---
pt reporting 10/10 pain, not requesting pain medication at this time, whats the point when it hasn't worked yet? . pt also requesting food/drink. informed that she is not to eat or drink until she has been seen by anesthesia pending ? blood patch.
[2023-02-17 13:21] VITALS: BP 126/81; PULSE 99; RESP 16; TEMP 37.1; O2SAT 100
--- NOTE | 2023-02-17 13:47 | PC.NURSE ---
report given to PACU
--- NOTE | 2023-02-17 14:28 | PM.EVENT ---
Event Note Date of Service: 02/17/23 Event Note: PDPH after having LP on for headaches. The pain started soon after LP and very positional. the conservative measures given in the ED overnight didn't help. The patient consented to the blood patch, risk and complications were explained. In the sitting position, after sterile prepx3 and drap, local injection of Lido 1% to the skin over L4-L5 space, Thuoty needle #22 introduced, MACIE with saline, after positioning the needle in the epidural space, 20 ml of fresh blood was withdrawn sterily from right AC and slowly injected into the epidural space. At the end of injecting the blood patient felt mild lower back pressure. The procedure was uneventful and well tolerated with VSS. Recommendation to the patient was to stay flat supine in the bad for the next 45-50 min and then assume semisitting position, if headaches resolved she can be discharged home with recommendation to avoid lifting heavy objects for the next 24 hours. Time Spent With Patient Time: Total time managing care of this patient today ____ minutes.
[2023-02-17] MEDS: Magnesium Sulfate/H2O 2 GM/50 ML PIGGYBACK IV (16:10)
[2023-02-17] MEDS: 0.9 % Sodium Chloride 2,000 ML 999 ML IVCONT (16:10)
[2023-02-17] MEDS: HYDROmorphone HCl 1 MG/ML SYRINGE IVPUSH (16:10)
[2023-02-17] MEDS: dexAMETHasone sod phosphate 10 MG/ML VIAL IVPUSH (16:10)
[2023-02-17 16:12] VITALS: BP 133/87; PULSE 103; RESP 16; O2SAT 98
--- NOTE | 2023-02-17 17:22 | P.HPHOSP_ITS ---
History of Present Illness Date of Service: 02/17/23 Attending physician on admission: Adarsh Millard Chief Complaint: Severe headache s/p LP Pt is a 27-year-old female with a PMH significant for?migraines and tension headaches who presents to the ED with?intractable severe headache after a lumbar puncture 3 days prior on Sunday. Pt states her history of headaches began in 2016 after her deployment in the [place]. 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 She soon develped photophobia and severe migraines. Since then pt has been experiencing headaches nearly every day. Patient states that this year she had a continuous headache that never broke that lasted the entire month of January. Patient saw was seen by [facility] of [facility] who prescribed her amitriptyline to prevent further headaches. However patient's headache still did not break until she was seen at the ED and given a migraine cocktail on 01/27/2023. Patient then continued taking amitriptyline which prevented her headaches from returning until patient missed a dose. Patient then went back to Neurology who arranged for the patient to undergo a lumbar puncture on 02/07/2023 to rule out a pseudotumor cerebri. Prior to the lum bar puncture patient did not have a headache but but soon after procedure after the procedure she developed one. On Sunday night headache was severe but not debilitating. However when patient woke on morning her headache was so severe she could not do anything: She could not walk, stand, sit perform any activities. She also experienced nausea but no vomiting. Patient states that h er headache was 10/10 and worse than her normal headaches. Patient then presented to the ED and was treated with diphenhydramine, ketorolac, morphine, migraine Tylenol, Dilaudid, Mag sulfate, dexamethasone, and placed on a caffeine drip. Patient also had a blood patch performed by Anesthesiology, but headache continued after the procedure. Patient currently complains of back pain at the lumbar puncture site and severe positional headache. Patient states that she has no headache when lying still on her back; headache only occurs with sitting, standing up, or walking. Patient denies chest pain/pressure, palpitations. Denies any changes to vision. No fever, chills, abdominal pain. No shortness of breath. Denies numbness and tingling in extremities. In the ED labs were unremarkable. CT?of head negative for acute intracranial abnormality including hemorrhage, mass effect, hydrocephalus, acute territorial edematous infarction. Pt will be admitted to the hospital under telemetry for treatment and further evaluation of intractable spinal headache s/p lumbar puncture. Review of Systems Review of Systems: Intractable oppositional headache s/p LP Nausea, no vomiting Chronic migraines Chronic photophobia Denies vision changes No abdominal pain Denies chest pain/pressure, palpitations No numbness or tingling in extremities Yes all other systems are reviewed and are negative PMFSH Surgical History History of breast augmentation History of surgery on arm Social History Alcohol intake: former Patient Tobacco Use Status: Never used Tobacco Smoked in Last 30 Days: No Advance Directives: No Advance Directives Information Provided: No Nutrition Risks: No Nutritional Risk Patient : No Meds Allergies Allergy/AdvReac Type Severity Reaction Status Date / Time No Known Allergies Allergy Verified 02/16/23 15:32 Active Medications: Current Medications Sodium Chloride (Ns) 2,000 mls @ 999 mls/hr IVCONT .Q2H1M ONE Stop: 02/17/23 17:26 Last Admin: 02/17/23 16:10 Dose: 999 mls/hr Caffeine/Sodium Benzoate 250 (mg/ Sodium Chloride) 501 mls @ 501 mls/hr IV ONCE ONE Stop: 02/17/23 17:29 Home Medications Medication Instructions Recorded Confirmed Last Taken Type amitriptyline 25 mg tablet 25 mg PO DAILY 02/14/23 02/14/23 Unknown History Physical Exam Vital Signs and Narrative: Vital Signs: Last Vital Signs Temp 98.7 F 02/17/23 13:21 Pulse 103 H 02/17/23 16:12 Resp 16 02/17/23 16:12 BP 133/87 02/17/23 16:12 Pulse Ox 98 02/17/23 16:12 O2 Del Method Room Air 02/17/23 16:12 BMI result Body Mass Index 23.2 Constitutional: Alert, in no acute distress. Mental Status: Oriented to person, place and time. Eyes: Pupils are equal, round, and reactive to light. Ear, Nose, and Throat: Oropharynx clear, mucous membranes moist. Ears and nose without deformities. Trachea midline. Respiratory: Clear to auscultation bilaterally. No wheezing, rales, or rhonchi. Cardiovascular: S1, S2 regular. No murmurs, rubs, or gallops. Gastrointestinal: Abdomen soft, non-tender, non-distended. Normal bowel sounds. Neurologic: Cranial nerves II-XII are grossly intact bilaterally. No focal neurological deficits. Moves all extremities spontaneously. Sensation to light touch intact in upper and lower extremities bilaterally. Skin: No rashes or lesions noted. Extremities: No edema. Psychiatric: Normal mood and affect. Results Labs 02/16/23 16:13 02/16/23 16:13 Labs: Laboratory Results - last 24 hr 02/16/23 16:13 Anion Gap 11 L Estim Creat Clear Calc 86.8 Estimated GFR > 60 Random Glucose 125 H Calcium 9.6 Total Bilirubin 0.5 Direct Bilirubin 0.1 AST 15 ALT 23 Alkaline Phosphatase 45 Total Protein 7.2 Albumin 4.1 Beta HCG, Quant < 2 Imaging Radiologist's Impressions: Impressions Head CT 02/16/23 19:11 IMPRESSION: No acute intracranial abnormality including hemorrhage, mass effect, hydrocephalus, or acute territorial edematous infarction. Assessment and Plan (1) Spinal headache: Status: Acute Plan Pt is a 27-year-old female with a PMH significant for?migraines and tension headaches who presents to the ED with?intractable severe headache after a lumbar puncture 3 days prior on Sunday. Pt will be admitted to the hospital under telemetry for treatment and further evaluation of intractable spinal headache s/p lumbar puncture. Intractable spinal headache Patient with severe 10/10 headache since lumbar puncture on 02/14/2023 Pt has been treated with diphenhydramine, ketorolac, morphine, migraine Tylenol, Dilaudid, Mag sulfate, dexamethasone, and placed on a caffeine drip in ED Tylenol, Dilaudid for pain management Anesthesia consult for likely repeat blood patch procedure tomorrow morning Chronic migraines Patient with chronic migraine since 2017 Followed by Neurology Continue amitriptyline Full Code Attending:?Dr. Millard DVT Prophylaxis: Lovenox Pt will be admitted to the hospital under telemetry for treatment and further evaluation of intractable spinal headache s/p lumbar puncture. Time Spent With Patient Time: Total time managing care of this patient today ____ minutes. Quality Stroke Does the patient have a stroke diagnosis?: No VTE Prior VTE?: No VTE Risk Level:: Medical - moderate - high VTE Device Contraindication: Treatment Not Indicated VTE Drug Contraindication: N/A - Med Ordered
--- NOTE | 2023-02-17 17:49 | PM.EVENT ---
Event Note Date of Service: 02/17/23 Event Note: Addendum to history and physical by the advanced practice provider, MAYNOR Brian I interviewed and examined the patient. I discussed their presentation and management with the DANYEL. I reviewed the history and physical and agree with the documentation, with the following additions and corrections: 27yo F with intractable migraines s/p LP to r/o pseudotumor cerebri 02/14/23, presenting with persisent post-dural positional headache refractory to medications given in ED and 1st attempt at epidural blood patch today. Plan admit to M/S on observation, continue caffeine drip, repeat blood patch if needed tomorrow. HOLD lovenox in case needs repeat blood patch Time Spent With Patient Time: Total time managing care of this patient today ____ minutes.
[2023-02-17 18:15] VITALS: PULSE 110; RESP 14
[2023-02-17] MEDS: Caffeine/Sodium Benzoate 250 MG in 0.9 % Sodium Chloride 500 ML 501 MG IV (18:16)
--- NOTE | 2023-02-17 18:21 | PC.NURSE ---
pt reports no pain while laying flat, reports that when she becomes vertical she has about 3-5 seconds until the pain hits . pt reporting 10/10 pain when standing. back pain resolved by Dilaudid, reports its just in my head and neck now
--- NOTE | 2023-02-17 18:50 | PHA.MEDREC ---
Pharmacy Consult ? Medication Reconciliation Pharmacy has completed the medication reconciliation.
--- NOTE | 2023-02-17 19:46 | PC.NURSE ---
pt reported that her infusion is making her headache worst, medication discontinued
[2023-02-17] MEDS: Enoxaparin Sodium 40 MG/0.4 ML SYRINGE SUBCUT (19:49)
[2023-02-17] MEDS: HYDROmorphone HCl 0.5 MG/0.5 ML SYRINGE IVPUSH (19:55)
[2023-02-17 20:37] VITALS: BP 129/80; PULSE 100; RESP 18; TEMP 36.4; O2SAT 97
[2023-02-17 21:59] VITALS: BMI 23.4
[2023-02-18] VITALS: BP 140/82; PULSE 98; RESP 18; TEMP 36.7; O2SAT 99
[2023-02-18 03:16] VITALS: BP 120/75; PULSE 86; RESP 18; TEMP 36.4; O2SAT 98
[2023-02-18] MEDS: 0.9 % Sodium Chloride Flush 3 ML SYRINGE IVFLUSH (07:33)
[2023-02-18 08:00] VITALS: BP 118/70; PULSE 86; RESP 17; TEMP 36.5; O2SAT 98
[2023-02-18] MEDS: Amitriptyline HCl 25 MG TABLET PO (09:48)
--- NOTE | 2023-02-18 11:32 | MHC.CM.PN ---
pt lives with sister and is working she is covid has own ride home dc plan home no servceis
--- NOTE | 2023-02-18 11:46 | P.DS_ITS ---
DS: Providers Provider Date of Service: 02/18/23 Date of admission: 02/17/23 18:03 Date of discharge: 02/18/23 Primary care physician: Nicanor Gibbs CNP Consults: 02/17/23 00:32 Consult to Anesthesiology Stat Consulting Provider: Anesthesiologist Reason for consultation: Eval for post spinal headache and need for blood patch. 02/17/23 18:12 Consult to Anesthesiology Routine Consulting Provider: Marc Mandel Reason for consultation: Repeat blood patch for pt with PERAZA s/p LP DS: Diagnosis Discharge Diagnosis (1) Post-dural puncture headache: Status: Acute (2) Migraine: Status: Acute DS: Summary Hospital Course Hospital Course: from admission H+P by hospitalist MAYNOR Brian, 02/17/23: Pt is a 27-year-old female with a PMH significant for?migraines and tension headaches who presents to the ED with?intractable severe headache after a lumbar puncture 3 days prior on Sunday. Pt states her history of headaches began in 2016 after her deployment in the [place]. 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 She soon develped photophobia and severe migraines. Since then pt has been experiencing headaches nearly every day.? Patient states that this year she had a continuous headache that never broke that lasted the entire month of January.? Patient saw was seen by [facility] of [facility] who prescribed her amitriptyline to prevent further headaches.? However patient's headache still did not break until she was seen at the ED and given a migraine cocktail on 01/27/2023.? Patient then continued taking amitriptyline which prevented her headaches from returning until patient missed a dose.? Patient then went back to Neurology who arranged for the patient to undergo a lumbar puncture on 02/07/2023 to rule out a pseudotumor cerebri.? Prior to the lumbar puncture patient did not have a headache but but soon after procedure after the procedure she developed one.? On Sunday night headache was severe but not debilitating.? However when patient woke on morning her headache was so severe she could not do anything:? She could not walk, stand, sit perform any activities.? She also experienced nausea but no vomiting.? Patient states that her headache was 10/10 and worse than her normal headaches.? Patient then presented to the ED and was treated with diphenhydramine, ketorolac, morphine, migraine Tylenol, Dilaudid, Mag sulfate, dexamethasone, and placed on a caffeine drip.? Patient also had a blood patch performed by Anesthesiology, but headache continued after the procedure.? Patient currently complains of back pain at the lumbar puncture site and severe positional headache.? Patient states that she has no headache when lying still on her back; headache only occurs with sitting, standing up, or walking.? Patient denies chest pain/pressure, palpitations.? Denies any changes to vision.? No fever, chills, abdominal pain.? No shortness of breath.? Denies numbness and tingling in extremities. In the ED labs were unremarkable. CT?of head negative for acute intracranial abnormality including hemorrhage, mass effect, hydrocephalus, acute territorial edematous infarction. Pt will be admitted to the hospital under telemetry for treatment and further evaluation of intractable spinal headache s/p lumbar puncture. 27yo F with recurrent migraines s/p LP to r/o pseudotumor cerebri 02/14/23, presenting with persisent post-dural positional headache refractory to medications given in ED and 1st attempt at epidural blood patch. She was admitted to the medical-surgical unit on observation. Caffeine drip was completed. Her pain improved without the need for a repeat epidural blood patch and she was discharged home to continue amitriptylline as preventive therapy and to follow-up with her neurologist. Time Spent with Patient Time attestation: Total time managing care of this patient today __25__ minutes. Discharge coordination time: Less than 30 minutes Quality: Safe Use of Opioids Does Pt have an Active Cancer Diagnosis on the Problem List?: No Quality: Stroke Does the patient have a stroke diagnosis?: No Physical Exam Vital Signs: Vital Signs: Last Vital Signs Temp 97.7 F 02/18/23 08:00 Pulse 86 02/18/23 08:00 Resp 17 02/18/23 08:00 BP 118/70 02/18/23 08:00 Pulse Ox 98 02/18/23 08:00 O2 Del Method Room Air 02/18/23 08:00 BMI result Body Mass Index 23.4 Gen: in no acute distress HEENT: sclera anicteric, moist mucus membranes Neck: supple Lungs: clear to auscultation bilaterally Heart: regular rate and rhythm, no murmurs Abd: soft, non-tender, non-distended Ext: no edema Skin: warm/well-perfused Neuro: alert and oriented x3, no focal findings Psych: appropriate affect DS: Data Data Completed and Pending Completed studies during hospitalization [Text1]: Laboratory Results WBC 7.4 X10*3/uL (4.8-10.8) 02/16/23 16:13 RBC 4.58 X10*6/uL (4.20-5.50) 02/16/23 16:13 Hgb 13.2 g/dl (12.0-16.0) 02/16/23 16:13 Hct 39.2 % (37.0-47.0) 02/16/23 16:13 MCV 85.6 fL (80.0-98.0) 02/16/23 16:13 MCH 28.8 pg (27.0-33.0) 02/16/23 16:13 MCHC 33.7 g/dl (31.0-35.0) 02/16/23 16:13 RDW 12.0 % (11.0-16.0) 02/16/23 16:13 Plt Count 230 X10*3/uL (160-400) 02/16/23 16:13 MPV 11.4 fL (9.4-12.3) 02/16/23 16:13 Immature Gran % (Auto) 0.1 % (0.0-0.4) 02/16/23 16:13 Neut % (Auto) 60.7 % (45-73) 02/16/23 16:13 Lymph % (Auto) 33.0 % (20-40) 02/16/23 16:13 [place] % (Auto) 5.2 % (2-11) 02/16/23 16:13 Eos % (Auto) 0.7 % (0-4) 02/16/23 16:13 Baso % (Auto) 0.3 % (0-2) 02/16/23 16:13 Lymph # (Auto) 2.4 X10*3/uL (1.2-4.9) 02/16/23 16:13 [place] # (Auto) 0.4 X10*3/uL (0.1-1.2) 02/16/23 16:13 Eos # (Auto) 0.1 X10*3/uL (0.0-0.4) 02/16/23 16:13 Baso # (Auto) 0.0 X10*3/uL (0.0-0.2) 02/16/23 16:13 Abs Immat Gran (auto) 0.01 X10*3/uL (0.00-0.03) 02/16/23 16:13 Absolute Neuts (auto) 4.5 x10*3/uL (2.0-8.3) 02/16/23 16:13 Absolute Nucleated RBC 0.000 X10*3/uL (0.0-0.012) 02/16/23 16:13 Nucleated RBC % (auto) 0.0 /100WBC (0.0-0.2) 02/16/23 16:13 Sodium 136 mmol/L (135-145) 02/16/23 16:13 Potassium 3.8 mmol/L (3.3-5.1) 02/16/23 16:13 Chloride 105 mmol/L (96-108) 02/16/23 16:13 Carbon Dioxide 24 mmol/L (22-29) 02/16/23 16:13 Anion Gap 11 (12-20) L 02/16/23 16:13 BUN 8 mg/dL (9-16) L 02/16/23 16:13 Creatinine 0.77 mg/dL (0.5-1.4) 02/16/23 16:13 Estim Creat Clear Calc 86.8 02/16/23 16:13 Estimated GFR > 60 02/16/23 16:13 Random Glucose 125 mg/dL (60-115) H 02/16/23 16:13 Calcium 9.6 mg/dL (8.4-10.2) 02/16/23 16:13 Total Bilirubin 0.5 mg/dL (0.0-1.0) 02/16/23 16:13 Direct Bilirubin 0.1 mg/dL (0.0-0.5) 02/16/23 16:13 AST 15 U/L (5-31) 02/16/23 16:13 ALT 23 U/L (0-31) 02/16/23 16:13 Alkaline Phosphatase 45 U/L (39-117) 02/16/23 16:13 Total Protein 7.2 g/dL (6.5-8.0) 02/16/23 16:13 Albumin 4.1 g/dL (3.5-5.0) 02/16/23 16:13 Beta HCG, Quant < 2 mIU/mL 02/16/23 16:[address] 02/16/23 19:11 IMPRESSION: No acute intracranial abnormality including hemorrhage, mass effect, hydrocephalus, or acute territorial edematous infarction. Discharge Plan Discharge Patient Disposition: Home, Self-Care Discharge Diagnosis: post-dural puncture headache, migraines Referrals: Nicanor Gibbs CNP [Primary Care Provider] - 1 Week Discharge Medications: Continued amitriptyline 25 mg tablet 25 mg PO DAILY Discharge Orders: Discharge Order (Routine); Ordered 02/18/23 Ordered By: Adarsh Millard Diet: Advance to usual diet Activity on Discharge: As tolerated Stand Alone Forms: Patient Portal Discharge page Care Plan Goals: relief of headache Health Concerns: post-dural puncture headache, migraines Plan of Treatment: drink caffeine and take ibuprofen or acetaminophen as needed for headache follow up with neurologist within 2 weeks Please follow up with your primary care doctor within 1 week. Return to the hospital if you experience recurrent or worsening symptoms. Assessment: See Discharge Summary. Patient Instructions: Acute Headache (ED)
[2023-02-18 11:49] VITALS: BP 107/56; PULSE 96; RESP 17; TEMP 36.4; O2SAT 97
== END 2023-02-18 13:35 | disposition home or self-care (01) ==
LOC: HO.ED 02-17 16:45 → HO.EDOVER 02-17 18:13 → HO.S3 02-17 19:09
PROVIDERS: Anesthesiology; Physician Assistant; Admitting Provider Student in an Organized Health Care Education/Training Program; Emergency Provider Internal Medicine; PCP Nurse Practitioner Family; Visit Provider Family Medicine
PROC: 3E0R3GC Introduction of Other Therapeutic Substance into Spinal Canal, Percutaneous Approach (ICD-10-PCS; CPT 62273; principal; 2023-02-17 14:00)
DX: G97.1 Other reaction to spinal and lumbar puncture (principal); G43.909 Migraine, unspecified, not intractable, without status migrainosus; R53.1 Weakness; Z79.899 Other long term (current) drug therapy
CPT/HCPCS: 36415; 70450; 80048; 80076; 84702; 85025; 96361; 96365; 96366; 96367; 96372; 96375; 96376; 99221; 99285; 99499; J1100; J1170; J1200; J1650; J1885; J2765; J3475